=== PATIENT | male | born 1950 | race Caucasian/White ===

== ENCOUNTER 2017-02-18 15:33 | Observation (INO) | payer OTHER ==
--- NOTE | 2017-02-18 15:53 | CPEKG ---
Heart Rate: 75 RR Interval: 800 P-R Interval: 152 QRSD Interval: 98 QT Interval: 388 QTC Interval: 434 P [place]: 45 QRS [place]: 16 T Wave [place]: -22 EKG Severity - ABNORMAL ECG - EKG Impression: SINUS RHYTHM EKG Impression: INFERIOR INFARCT, AGE INDETERMINATE Electronically Signed By: Talib Bunch 18-Feb-2017 21:57:35
--- NOTE | 2017-02-18 16:12 | EDPHY ---
HPI/HX/ROS/PE/MDM Narrative: CHIEF COMPLAINT: Dizziness HISTORY OF PRESENT ILLNESS: The patient is a 66 year old male with history of diabetes, who presents with sudden onset of dizziness at 3pm. The patient walked 35 minutes to his dentist for a cleaning. While standing and speaking to dentist, he turned to get his hat and everything in his vision went black. The patient was able to catch himself on a counter ledge. He is able to recall the full event. He immediately after developed a headache. He described a pulsing to the back of his head that intermittently feels tingly. The patient's BGL at the dentist was 110. Patient has a history of diabetes. On arrival to the emergency department the patient reported that he began to feel lightheaded and dizzy. He states he does not feel stable when ambulating. When he closes his eyes he "gets a rocking sensation". While in the ED the patient notes some word finding difficulty. He states he is unable to recall a city in [place] and had a hard time finding with word "hygienist". He denies associated chest pain, shortness of breath, or palpitations. The patient has no history of hypertension. He denies vomiting, diarrhea, or urinary complaints. No numbness or tingling to face. REVIEW OF SYSTEMS: Aside from elements discussed in the HPI, a comprehensive 10-point review of systems was reviewed and is negative. PAST MEDICAL HISTORY: NH with 3 cardiac stents- Followed by Dr. Brand. Diabetes. SOCIAL HISTORY: . VITAL SIGNS: Reviewed by me GENERAL: Well-developed, well-nourished, resting comfortably in no respiratory distress. HEENT: Atraumatic. Eyes: No icterus, no injection. WAGNER, EOMI. Mouth: moist mucous membranes. No erythema or lesions. Neck: supple with no adenopathy. No carotid bruits. LUNGS: Clear to auscultation bilaterally, no wheezes, rhonchi or rales. CARDIAC: Regular rate and rhythm, no rubs, murmurs or gallops. ABDOMEN: Soft, nontender, nondistended, bowel sounds normal. BACK: No CVA tenderness. EXTREMITIES: No trauma. No edema. Range of motion is normal throughout. NEURO: Alert and oriented, cranial nerves II through XII are intact. Motor strength 5 over 5 in all major muscle groups. Sensation intact to light touch. Normal finger to nose. Speech is fluid. Able to name common objects. SKIN: Warm and dry, no rash. PSYCHIATRIC: Normal mentation, no agitation. Portions of this note were transcribed by a front office medical assistant. I personally performed a history, physical exam, medical decision making, and confirmed accuracy of information the transcribed note. ED Course: The patient is a 66-year-old male presenting with sudden onset of dizziness and loss of vision. The patient now feels dizzy when closing his eyes. He has a moderate headache and feels a tingling sensation to the occiput region. Stroke alert called. Patient was sent to CT for imaging of head and neck. Neurology was paged. Ct head noncontrast was. I viewed the images myself on the PACS system. I spoke to the radiologist, the patient has questionable hypodensity in left frontal lobe. See the full radiology report in the imaging section. X-ray of the chest was obtained. I viewed the images myself on the PACS system. See the full radiology report in the imaging section. 4:30 p.m.: I spoke to Dr. Ordaz with [facility] neurology. He gives the patient a stroke score of 0. When he tried to get patient to ambulate, the patient was unable to due to instability. Dr. Ordaz discussed the possibility of utilizing tPA with the patient and his . However, given the patient's NIH stroke score of 0, although he does have some gait difficulty, plan was made not to begin tPA. Patient will have a CT angiogram of the head and neck vessels obtained. I ordered 25mg Meclizine PO for symptomatic treatment. CT angiograms were normal. Patient's course was discussed with Dr Dale. MRI was ordered. The differential diagnosis for the patient's neurologic deficits included but was not limited to amaurosis fugax, peripheral causes, central causes including CVA, TIA, electrolyte abnormalities and dehydration, cardiogenic causes, atypical causes like migraine syndrome. MDM: Differential diagnoses the patient's presenting complaints was considered including but not limited to intracranial injury, TIA, ischemic cerebrovascular accident, hemorrhagic cerebrovascular accident, hypoglycemia, complex migraine , metastases, tumor, seizure, positional vertigo, or electrolyte abnormality. - Data Points Imaging Results: Imaging Impressions Head CT 02/18/17 16:15 Impression: 1. Mild atrophy. 2. No acute hemorrhage, hydrocephalus, or mass effect. 3. Cerebrovascular atherosclerosis. 4. No definite acute infarct. 5. Mild microvascular ischemic gliosis. 6. Consider MRI of the brain without and with contrast enhancement, if there is continued clinical concern. Findings and recommendations discussed with Emergency Department physician, Adina Evans MD at 1625 hour, 02/18/2017. Final report concurs with initial preliminary interpretation. Chest X-Ray 02/18/17 16:17 Impression: Stable negative portable chest. Laboratory Results: Laboratory Results 02/18/17 16:00 02/18/17 16:00 02/18/17 02/18/17 02/18/17 16:00 16:00 16:00 WBC 5.54 10^3/uL 10^3/uL (3.80-9.50) RBC 4.68 10^6/uL 10^6/uL (4.40-6.38) Hgb 14.5 g/dL g/dL (13.7-17.5) POC Hgb Hct 44.1 % % (40.0-51.0) POC Hct MCV 94.2 fL fL (81.5-99.8) MCH 31.0 pg pg (27.9-34.1) MCHC 32.9 g/dL g/dL (32.4-36.7) RDW 12.9 % % (11.5-15.2) Plt Count 233 10^3/uL 10^3/uL (150-400) MPV 11.2 fL fL (8.7-11.7) Neut % (Auto) 59.2 % % (39.3-74.2) Lymph % (Auto) 27.8 % % (15.0-45.0) Rogers % (Auto) 9.0 % % (4.5-13.0) Eos % (Auto) 3.1 % % (0.6-7.6) Baso % (Auto) 0.7 % % (0.3-1.7) Nucleat RBC Rel Count 0.0 % % (0.0-0.2) Absolute Neuts (auto) 3.28 10^3/uL 10^3/uL (1.70-6.50) Absolute Lymphs (auto) 1.54 10^3/uL 10^3/uL (1.00-3.00) Absolute Monos (auto) 0.50 10^3/uL 10^3/uL (0.30-0.80) Absolute Eos (auto) 0.17 10^3/uL 10^3/uL (0.03-0.40) Absolute Basos (auto) 0.04 10^3/uL 10^3/uL (0.02-0.10) Absolute Nucleated RBC 0.00 10^3/uL 10^3/uL (0-0.01) Immature Gran % 0.2 % % (0.0-1.1) Immature Gran # 0.01 10^3/uL 10^3/uL (0.00-0.10) PT 13.9 SEC SEC (12.0-15.0) INR 1.08 (0.83-1.16) POC Sodium Sodium 140 mEq/L mEq/L (134-144) POC Potassium Potassium 4.6 mEq/L mEq/L (3.5-5.2) POC Chloride Chloride 104 mEq/L mEq/L (97-110) Carbon Dioxide 23 mEq/l mEq/l (22-31) Anion Gap 13 mEq/L mEq/L (8-16) POC BUN BUN 19 mg/dL mg/dL (7-23) Creatinine 0.8 mg/dL mg/dL (0.7-1.3) POC Creatinine Estimated GFR > 60 Glucose 115 mg/dL H mg/dL (70-100) POC Glucose Calcium 9.7 mg/dL mg/dL (8.5-10.4) Troponin I < 0.012 ng/mL ng/mL (0-0.034) 02/18/17 15:56 WBC RBC Hgb POC Hgb 15.6 gm/dL gm/dL (14.5-17.3) Hct POC Hct 46 % % (42.8-50.6) MCV MCH MCHC RDW Plt Count MPV Neut % (Auto) Lymph % (Auto) Rogers % (Auto) Eos % (Auto) Baso % (Auto) Nucleat RBC Rel Count Absolute Neuts (auto) Absolute Lymphs (auto) Absolute Monos (auto) Absolute Eos (auto) Absolute Basos (auto) Absolute Nucleated RBC Immature Gran % Immature Gran # PT INR POC Sodium 141 mEq/L mEq/L (134-144) Sodium POC Potassium 4.2 mEq/L mEq/L (3.3-5.0) Potassium POC Chloride 103 mEq/L mEq/L (96-108) Chloride Carbon Dioxide Anion Gap POC BUN 20 mg/dL mg/dL (7-23) BUN Creatinine POC Creatinine 0.9 mg/dL mg/dL (0.8-1.5) Estimated GFR Glucose POC Glucose 118 mg/dL H mg/dL (70-100) Calcium Troponin I Point of Care Test Results: 02/18/17 15:56 POC Sodium 141 POC Potassium 4.2 POC Chloride 103 POC BUN 20 POC Creatinine 0.9 POC Glucose 118 H General Time Seen by Provider: 02/18/17 15:50 Initial Vital Signs: Initial Vital Signs Temperature (C) 36.6 C 02/18/17 15:34 Heart Rate 85 02/18/17 15:34 Respiratory Rate 16 02/18/17 15:34 Blood Pressure 154/83 H 02/18/17 15:34 O2 Sat (%) 95 02/18/17 15:34 O2 Delivery Mode Room Air Allergies/Adverse Reactions: No Known Allergies Allergy (Verified 02/18/17 15:34) Home Medications: Medication Instructions Recorded Aspirin [Aspirin 81mg (OTC)] 81 mg PO DAILY@18 12/29/12 Atorvastatin Calcium [Lipitor 40 40 mg PO DAILY 12/29/12 mg (RX)] Pioglitazone HCl [Actos 15mg (RX)] 30 mg PO DAILY 12/29/12 metFORMIN HCL [Glucophage 1000 mg] 1,000 mg PO BIDMEAL 12/29/12 Calcium Carbonate [Oyster Shell 500 mg PO DAILY 02/18/17 Calcium 500 mg (*)] Herbals/Supplements -Info Only 1 ea PO DAILY 02/18/17 Tamsulosin HCl [Flomax 0.4 MG (*)] 0.4 mg PO HS 02/18/17 glipiZIDE [Glipizide Xl] 5 mg PO BID 02/18/17 Departure - Departure Disposition: [facility] Acute Clinical Impression: Dizziness, Vertigo Transient visual loss Qualifiers: Laterality: bilateral Qualified Code(s): H53.123 - Transient visual loss, bilateral Condition: Fair Report Scribed for: Adina Evans Report Scribed by: Isis Flanagan Date of Report: 02/18/17 Time of Report: 16:12
[2017-02-18 16:26] LABS: % IMMATURE GRANULYOCYTES 0.2 % (0.0-1.1); ABSOLUTE IMMATURE GRANULOCYTES 0.01 10^3/uL (0.00-0.10); ADD DIFF? NO; ADD MORPH? NO; ADD SCAN? NO; ATYPICAL LYMPHOCYTE FLAG 10 (0-99); FRAGMENT RBC FLAG 0 (0-99); HEMATOCRIT 44.1 % (40.0-51.0); HEMOGLOBIN 14.5 g/dL (13.7-17.5); LEFT SHIFT FLG 0 (0-99); LIPEMIA HEMOLYSIS FLAG 80 (0-99); MEAN CELL HEMOGLOBIN CONCENTR. 32.9 g/dL (32.4-36.7); MEAN CELL VOLUME 94.2 fL (81.5-99.8); MEAN PLATELET VOLUME 11.2 fL (8.7-11.7); PLATELET CLUMPS FLAG 0 (0-99); PLATELET COUNT 233 10^3/uL (150-400); RED BLOOD CELL COUNT 4.68 10^6/uL (4.40-6.38); RED CELL DISTRIBUTION WIDTH 12.9 % (11.5-15.2)
[2017-02-18 16:32] LABS: ANION GAP 13 mEq/L (8-16); CALCIUM 9.7 mg/dL (8.5-10.4); CARBON DIOXIDE 23 mEq/l (22-31); CHLORIDE 104 mEq/L (97-110); CREATININE 0.8 mg/dL (0.7-1.3); GLOMERULAR FILTRATION RATE > 60; GLUCOSE 115 mg/dL (70-100); POTASSIUM 4.6 mEq/L (3.5-5.2); SODIUM 140 mEq/L (134-144)
[2017-02-18 16:43] LABS: TROPONIN I < 0.012 ng/mL (0-0.034)
[2017-02-18 16:47] LABS: INR 1.08 (0.83-1.16); PROTIME(PATIENT) 13.9 SEC (12.0-15.0)
[2017-02-18] MEDS ORDERED: IOPAMIDOL (ISOVUE 370) 100 ML BTL IV ONE (16:59)
[2017-02-18] MEDS ORDERED: MECLIZINE HCL 25 MG TAB PO ONE (17:05)
[2017-02-18] MEDS ORDERED: ONDANSETRON DISINTEGRATING 4 MG TAB PO PRN (17:59)
[2017-02-18] MEDS ORDERED: NS 1,000 ML IV ONE (17:59)
[2017-02-18] MEDS ORDERED: ONDANSETRON 4 MG/2 ML VIAL IVP PRN (17:59)
[2017-02-18] MEDS ORDERED: ASPIRIN EC 325 MG TAB PO SCH (18:30)
--- NOTE | 2017-02-18 19:42 | GHP ---
[f rep st] HISTORY AND PHYSICAL DATE OF ADMISSION: 02/18/2017 CHIEF COMPLAINT: Lightheadedness and gait instability. HISTORY OF PRESENT ILLNESS: A 66-year-old male with a history of coronary artery disease status pos t multiple stenting and long-term diabetes, who presents from his dentist's office today after mindy grant cleaning. Patient rob and was standing and had a very sudden loss of vision causing him to brian ck out without loss of consciousness and stabilize himself along the wall. Patient then developed a very severe sensation of gait instability or difficulty placing himself in space with a tingling se nsation across his scalp and a low-grade headache in his posterior head. These symptoms persisted u ntil he presented to the emergency department. Denied at that time any weakness or tingling of his extremities. After some time in the emergency d epartment, patient developed severe dizziness particularly when lying his head back. This persisted through both of his CT scans until treated with meclizine. When examined in the ED initially, he d id have some vyozgv-ec-msyk instability and a few moments of word-finding difficulty. On my interview, patient was thinking very clearly, denied any weakness, any tingling, had marked im provement in his vertigo symptoms, denied any chest pain, palpitations, shortness of breath, nausea, vomiting, abdominal discomfort. Patient can walk 30-40 minutes without complication, chest pain or limitations secondary to conditioning, is quite stable on his feet and quite active for his medical comorbidities. PAST MEDICAL HISTORY: 1. Coronary artery disease status post 3 stents. 2. Diabetes mellitus. 3. Hyperlipidemia, diet and activity controlled. 4. Chronic back pain. SOCIAL HISTORY: Lives with his . Does not smoke, drink alcohol or use illicit drugs. FAMILY HISTORY: Positive for vertigo as well as ovarian cancer in his mother. No known strokes. ADVANCED DIRECTIVES: The patient wishes to be full cor, full tube. His would be his medical d ecision maker. REVIEW OF SYSTEMS: A 10-point review of systems is negative with the exception of that reported in the HPI. PHYSICAL EXAMINATION: VITAL SIGNS: Blood pressure is 164/74, heart rate 77, respiratory rate 18, 9 4% on room air of 36.6. GENERAL: This is a very healthy-appearing middle-aged male in no acute distr ess. HEENT: Notable for moist mucous membranes. Eye exam is negative for any icterus. CARDIAC: Patient is regular rate and rhythm. Quiet systolic murmur is appreciated. PULMONARY: Clear to aus cultation bilaterally. GASTROINTESTINAL: Positive bowel sounds. ABDOMEN: Soft, nontender in all 4 quadrants. MUSCULOSKELETAL: Negative for any lower extremity edema. SKIN: Negative for any rash es. NEUROLOGIC: Cranial nerves 2-12 are grossly intact. Strength is grossly intact. Sensation is grossly intact. Patient has slight faltering on btgujv-rr-cqps and has mild pronator drift, was sl ow to stabilize himself when transitioning from the ER bed to his inpatient bed. DATA: White count 5.5, hematocrit 44, creatinine 0.8. EKG, which I personally reviewed and interpreted, shows sinus rhythm, leftward axis deviation, with no acute ST-T changes. Noncontrast CT of the head, which I personally reviewed and interpreted, shows no acute strokes. Radiology comments on mild microvascular ischemic gliosis. CTA of the head and neck show normal arterial circulation. Chest x-ray, which I personally reviewed and interpreted, shows no acute infiltrates or edema. ASSESSMENT AND PLAN: This is a 66-year-old male presenting with acute ataxia and lightheadedness. 1. Presumed transient ischemic attack. Patient's initial symptoms sound concerning for a possible posterior transient ischemic attack. Initial imaging of the head has been negative. Will admit the patient, order MRI, telemetry monitoring overnight and transthoracic echocardiogram. Patient will receive an aspirin and be seen by Neurology in the morning. 2. Coronary artery disease. Patient does not have chest pain complaints. His EKG is unconcerning. Will continue his home medications when reconciled. 3. Hyperlipidemia. We will check fasting lipids in the morning to help inform. 4. Risk prevention strategies by Neurology. 5. Diabetes. Will continue his home regimen with the exception of metformin which will hold while inpatient. DIET: Cardiac. PROPHYLAXIS: Lovenox. DISPOSITION: I expect less than 2 midnights if the patient's neurologic imaging and exam remains st able. I have discussed the case with the emergency room physician. Patient will be triaged to the medical -surgical floor for monitoring and care. /[id number]/MODL
[2017-02-18 20:20] LABS: HEMOGLOBIN A1C 7.4 % (4.0-6.0)
[2017-02-18] MEDS: glipiZIDE XL 5 MG TAB PO SCH (20:28)
[2017-02-18] MEDS ORDERED: TAMSULOSIN HCL 0.4 MG CAP PO SCH (21:00)
[2017-02-18] MEDS: ACETAMINOPHEN 325 MG TAB PO PRN (23:09)
[2017-02-19 05:30] LABS: ANION GAP 8 mEq/L (8-16); CALCIUM 9.2 mg/dL (8.5-10.4); CARBON DIOXIDE 27 mEq/l (22-31); CHLORIDE 106 mEq/L (97-110); CHOLESTEROL 97 mg/dL (140-220); CREATININE 0.9 mg/dL (0.7-1.3); GLOMERULAR FILTRATION RATE > 60; GLUCOSE 113 mg/dL (70-100); HIGH DENSITY LIPOPROTEIN 44 mg/dL (40-65); LDL/HDL RATIO 0.64 RATIO (1.00-3.64); LOW DENSITY LIPOPROTEIN 28 mg/dL (80-100); NON-HIGH DENSITY LIPOPROTEIN 53 mg/dL (90-129); POTASSIUM 4.9 mEq/L (3.5-5.2); SODIUM 141 mEq/L (134-144); TRIGLYCERIDE 129 mg/dL (40-150); VERY LOW DENSITY LIPOPROTEINS 25 mg/dL (8-25)
[2017-02-19 07:49] VITALS: RESP 14; TEMP 97.9
[2017-02-19] MEDS: glipiZIDE XL 5 MG TAB PO SCH (08:33)
[2017-02-19] MEDS: ACETAMINOPHEN 325 MG TAB PO PRN (08:33)
[2017-02-19] MEDS ORDERED: ENOXAPARIN 40 MG/0.4 ML SYR SC SCH (09:00)
[2017-02-19] MEDS ORDERED: CALCIUM CARBONATE 500 MG TAB PO SCH (09:00)
[2017-02-19] MEDS ORDERED: Herbals/Supplements -Info Only PO SCH (09:00)
[2017-02-19] MEDS ORDERED: ATORVASTATIN CALCIUM 40 MG TAB PO SCH (09:00)
[2017-02-19] MEDS ORDERED: PIOGLITAZONE HCL 15 MG TAB PO SCH (09:00)
[2017-02-19 11:53] VITALS: O2SAT 95
--- NOTE | 2017-02-19 12:48 | ECHO ---
[id number] + + [address] : : [place] [address] : : [phone] + Adult Echocardiographic Report + ------+ :Name: AGNELA CHISHOLM BStudy Date: 02/19/2017 08:47 AM : : Hospital Admission Number: [id number] Locatio n: 341: :: 1950 Gender: Male Height: 75 in : :Age: 66 yrs Race: WH Weight: 228 lb : :Reason For Study: Eval LV Fx : : BSA: 2.3 meters 2 : :History: Near Syncope, Question TIA, History of Stents : + ------+ MMode/2D Measurements \T\ Calculations IVSd: 1.0 cm LVIDd: 5.6 cm FS: 27.8 % Ao root diam: 3.7 cm LVPWd: 1.2 cm LVIDs: 4.0 cm EDV(Teich): 151.7 ml ACS: 2.4 cm ESV(Teich): 70.9 ml EF(Teich): 53.3 % Normal Measurement Values: + + :LVIDd (3.5-5.7cm) IVSd (0.6-1.1cm) LVPWd (0.6-1.1cm) Aortic Root (2.0-3.7cm)Left Atrium (1.5-4.0cm): :LV Vol(d) (76-115ml) LV Vol(s) (29-48ml) Ejec Fraction (50-65%)PV Ras (0.6- 1.2m/s) TV Ras (0.4-1.0m/s) : :MV E Ras (0.8-1.0m/s)MV A Ras (0.3-1.0m/s)LVOT Ras (0.7-1.2m/s) Asc Ao Ras ( 0.9-1.8m/s) : + + Doppler Measurements \T\ Calculations MV E max ras: Ao V2 max: LV V1 max: PA V2 max: 58.7 cm/sec 97.7 cm/sec 66.6 cm/sec 170.4 cm/sec MV A max ras: Ao max PG: LV V1 max PG: PA max P.5 cm/sec 3.8 mmHg 1.8 mmHg 14.4 mmHg MV E/A: 0.79 Left Ventricle The left ventricle is normal in size. There is normal left ventricular wall thickness. Ejection Fraction = 45 to 50%. There is Doppler evidence for diastolic dysfunction. The inferior and inferoseptal grier are hypokinetic. Right Ventricle The right ventricle is normal in size and function. Atria The left atrial size is normal. Right atrial size is normal. Mitral Valve The mitral valve is normal in structure and function. There is no evidence of mitral valve prolapse. There is no mitral valve stenosis. There is no mitral regurgitation noted. Tricuspid Valve There is trace tricuspid regurgitation. Aortic Valve The aortic valve is trileaflet. There is no aortic stenosis. There is no aortic insufficiency. Pulmonic Valve The pulmonic valve is not well visualized. There is no pulmonic valvular regurgitation. Great Vessels The aortic root is normal size. Pericardium/Pleural There is no pericardial effusion. Conclusion A complete two-dimensional transthoracic echocardiogram was performed (2D, M-mode, Doppler and color flow Doppler). 1. The left ventricle is normal in size. The Ejection Fraction = 45 to 50%. The inferior and inferoseptal grier are hypokinetic. 2. The mitral valve is normal in structure and function. 3. The aortic valve is trileaflet. There is no aortic stenosis. There is no aortic insufficiency. 4. No old studies for comparison. Final Reading Physician: Vitor Crystal MD electronically signed on 02/19/2017 12:46 PM Ordering Physician: Mary Dale Performed By: Jorje Prabhakar, EDMONDCS
[2017-02-19 15:46] VITALS: BP 129/81; PULSE 70
[2017-02-19] MEDS ORDERED: ASPIRIN 81 MG CHEWABLE TAB PO SCH (18:00)
--- NOTE | 2017-02-19 20:35 | GDS ---
[f rep st] DISCHARGE SUMMARY DISCHARGE DIAGNOSES: 1. Lightheadedness and gait instability, most likely due to peripheral vertigo versus less likely t ransient ischemic attack. 2. History of coronary artery disease. 3. History of dyslipidemia. 4. History of diabetes mellitus. CONSULTANTS: Dr. Abdulaziz Mccauley. OBSERVATION COURSE AND STAY BY PROBLEM: Disequilibrium and gait instability: The patient was place d on observation out of concerns for TIA. A brain MRI done on 02/18/2017 was negative for stroke. The patient tells me that, while in the MRI scanner, he had an episode of vertigo, as well as headac he, which makes me think that his symptoms could be due to peripheral vertigo or possibly an atypica l migraine. On day of discharge, the patient states he feels well with resolution of his symptoms. He is no keagan josette having vertigo. I discussed the case with Dr. Mccauley who did recommend changing his aspirin to Pl avix in the off chance that this does represent a TIA. PHYSICAL EXAMINATION: VITAL SIGNS: On day of discharge, blood pressure 129/81, pulse is 70, respir atory rate 14, O2 saturation 95% on room air. GENERAL: No acute distress. NEURO: Cranial nerves 2-12 grossly intact. Face is symmetric. There is no pronator drift. There is no nystagmus. Denies any hearing loss or tinnitus. DISCHARGE MEDICATIONS: Please refer to discharge medication reconciliation in [facility]. DISCHARGE INSTRUCTIONS: He will be discharged from the hospital where he should follow up with his primary care provider in 1-2 weeks for routine hospital followup, as well as with Dr. Mccauley as instru cted. /[id number]/MODL
--- NOTE | 2017-02-19 23:05 | GCON ---
[f rep st] CONSULTATION INPATIENT CONSULTATION. DATE OF CONSULTATION: 02/19/2017 CHIEF COMPLAINT: Passing out spell, vertigo. HISTORY OF PRESENT ILLNESS: Dr. Mary Dale of the hospitalist service consulted Neurology for ev aluation of patient's neurologic symptoms. The results of evaluation are placed in the EMR for her review. This is a 66-year-old male with a past medical history of coronary artery disease with stents, diabe kimber, hyperlipidemia, and chronic back pain. He reports he was at a dental procedure on February 18. When he arose from the chair, he has sense of false sensation of movement resulting in passing o ut briefly. Since that time, he has felt slightly off balance. He also has felt intermittent tingl ing on his head. Symptoms are dramatically better today than they were yesterday. Hospitalization has included brain MRI, which was unremarkable. CT angio of the head and neck, which was unremarkab le. Echocardiogram showed no cardiac thrombus. Telemetry showing no atrial fibrillation. PAST MEDICAL HISTORY: Coronary artery disease, diabetes, hyperlipidemia, chronic back pain. SOCIAL HISTORY: Lives with . FAMILY HISTORY: Vertigo and cancer. REVIEW OF SYSTEMS: A 10-point review of systems is negative except for what is placed in the HPI. PHYSICAL EXAMINATION: VITAL SIGNS: Blood pressure 124/72, heart rate 66, respirations 14, saturati ng 95% on room air, temperature 36.6 degrees Celsius. GENERAL: In no acute distress. EYES: Fundu scopic exam could not visualize optic disc. LUNGS: Clear to auscultation bilaterally. No rhonchi or rale. HEART: Regular rate and rhythm. No murmurs. No carotid bruits auscultated. NEUROLOGIC: Mental status: Alert oriented to person, place, and date. Memory, attention, language, and fund of knowledge all appear intact. Cranial nerves: Pupils equal, round, reactive to light. Visual fi elds full to confrontation. Extraocular muscles intact. Bilateral face intact sensation and motor movement. Hearing intact to conversation. Uvula raises symmetrically. Tongue protrudes midline. Traps 5/5 strength. Motor exam: Normal tone and strength all 4 extremities. Sensory exam: All 4 extremities intact to light touch. No neglect. Reflexes: Bilateral biceps and brachial radialis a re 2/4. Coordination: Bilateral kmgdgk-oe-gydh, ostk-so-omqh, and rapid alternating movements are normal. GAIT: He stands and walks without any apparent vertigo. LABS: February 18, 2017: His CBC is unremarkable. INR unremarkable. Chemistry unremarkable. H1Ac 7. 4. February 19, 2017: LDL 28. RADIOLOGY: February 18, 2017: A brain MRI without contrast shows no acute stroke or any other acute fi ndings. There is mild chronic microvascular disease, I personally visualized the study. February 18 017: A CT angiogram of the head and neck shows no significant abnormalities. February 18, 2017: Trans thoracic echocardiogram shows no cardiac thrombus. February 18, 2017: Telemetry at this point has show n no atrial fibrillation. ASSESSMENT: 1. Peripheral vertigo syndrome: I suspect the patient likely had peripheral vertigo syndrome such as benign paroxysmal positional vertigo when he arose from the dental chair. This could be resultan t vasovagal syncope from intense vertigo. The fact that he has false sensation of movement lingerin g today makes me suspect that it was the likely cause. Symptoms have persisted but brain MRI is neg ative for ischemia, so I think a stroke or TIA is very unlikely. A typical vestibular migraine is a lso possible but that too seems unlikely. Treatment for BPPV is symptomatic care and possible vesti bular rehab, but since the patient's symptoms are dramatically better, he will go home and call me i n a few days if symptoms do not continue to improve. Given the small chance that this was an atypic al TIA, patient has requested we change his aspirin 81 mg to Plavix 75 mg daily. I will perform thi s in the outpatient setting and have the patient follow up with me in 4-6 weeks to verify this. 2. Diabetes. 3. Hyperlipidemia. 4. Heart disease. RECOMMENDATIONS: 1. In the outpatient setting, change aspirin 81 mg daily to Plavix 75 mg daily. 2. Work with outpatient primary care provider to ensure LDL less than 70, currently 28; HCT less th an 7, currently 7.4; blood pressure less than 140/90, given possibility this was a TIA. 3. Happy to follow in Neurology Service in 6 weeks, to call in 3 days if vertigo is not approved as we can refer to outpatient vestibular proposal specialist. No further neurologic workup needed. Patient can discharge home. /[id number]/MODL
== END 2017-02-19 17:20 | disposition home or self-care (01) ==
LOC: F3N 18:43
PROVIDERS: ADMIT Hospitalist; ATTEND Family Medicine
DX: R42 Dizziness and giddiness (principal); R26.81 Unsteadiness on feet; E11.9 Type 2 diabetes mellitus without complications; I25.10 Atherosclerotic heart disease of native coronary artery without angina pectoris; E78.5 Hyperlipidemia, unspecified; M54.9 Dorsalgia, unspecified; Z95.5 Presence of coronary angioplasty implant and graft
CPT/HCPCS: 70450; 70496; 70498; 70551; 71010; 92523; 93005; 93306; 97161; 99285; G0378; G8978; G8979; G8980; G8999; G9158; G9186; J1650; Q9967; 82947-QW

== ENCOUNTER → 2017-09-06 | Outpatient (CLI) | payer OTHER | LOC: BMCIMAGING 15:53 | PROVIDERS: ATTEND Family Medicine | DX: M24.232 Disorder of ligament, left wrist (principal) ==

== ENCOUNTER 2018-07-09 07:54 | Inpatient (IN) | payer OTHER ==
--- NOTE | 2018-07-09 08:13 | EDPHY ---
H & P Stated Complaint: prostate surg last week/catheter removed yesterday with fever/ chills Time Seen by Provider: 07/09/18 08:05 HPI/ROS: CHIEF COMPLAINT: Fever, chills following prostate surgery HISTORY OF PRESENT ILLNESS: The patient presents the ED with fever and chills following surgical treatment for BPH. The patient did have some difficulty initiating urination last night however has been able to urinate this morning. The patient had a Anderson catheter removed yesterday. The patient had a Anderson catheter placed for 2 days. It appears he did receive 1 IV dose of antibiotics during his procedure. He has not been on oral antibiotics since that time. The patient does have a history of coronary artery disease but has been off his Plavix secondary to this procedure. There is a plan to keep the patient off of Plavix moving forward. The patient reports associated shaking chills, nausea and non bilious vomiting. The patient complains of fairly significant systemic malaise. REVIEW OF SYSTEMS: A comprehensive 10 point review of systems is otherwise negative aside from elements mentioned in the history of present illness. Source: Patient Exam Limitations: No limitations - Personal History Current Tetanus Diphtheria and Acellular Pertussis (TDAP): Yes - Medical/Surgical History Hx Diabetes: Yes Hx Cardiac Disease: Yes Hx Renal Disease: No Hx Cirrhosis: No Hx Alcoholism: No Hx HIV/AIDS: No Hx Splenectomy or Spleen Trauma: No Other PMH: divericulitis. colon surg. NC w/3stents - Family History Significant Family History: No pertinent family hx - Social History Smoking Status: Former smoker - Physical Exam Exam: General Appearance: Alert, mild discomfort Eyes: Pupils equal and round no pallor or injection ENT, Mouth: Mucous membranes moist Respiratory: There are no retractions, lungs are clear to auscultation Cardiovascular: Tachycardic Gastrointestinal: Abdomen is soft and nontender, no masses, bowel sounds normal Neurological: 5/5 strength noted all 4 extremities Skin: Warm and dry, no rashes Musculoskeletal: Neck is supple nontender Extremities: Tenderness to palpation in the left wrist which the patient reports is a chronic condition Constitutional: Initial Vital Signs Temperature (C) 38 C 07/09/18 07:57 Heart Rate 152 H 07/09/18 07:57 Respiratory Rate 20 07/09/18 07:57 Blood Pressure 149/84 H 07/09/18 07:57 O2 Sat (%) 93 07/09/18 07:57 O2 Delivery Mode Nasal Cannula O2 (L/minute) 3 Allergies/Adverse Reactions: No Known Allergies Allergy (Verified 07/09/18 10:16) Home Medications: Medication Instructions Recorded Pioglitazone HCl [Actos 15mg (*)] 30 mg PO DAILY 12/29/12 Calcium Carbonate [Oyster Shell 500 mg PO DAILY 02/18/17 Calcium 500 mg (*)] Aspirin EC [Aspirin EC 81 mg (*)] 81 mg PO DAILY 07/09/18 Carvedilol [Coreg (*)] 3.125 mg PO BIDMEAL 07/09/18 Cholecalciferol Vit D3 [Vitamin D3 1,000 units PO DAILY 07/09/18 (*)] Insulin Detemir [Levemir] 10 unit SQ DAILY 07/09/18 Insulin Detemir [Levemir] 18 unit SQ HS 07/09/18 Multivitamins [Multivitamin (*)] 1 each PO DAILY 07/09/18 Rosuvastatin Calcium [Crestor 20mg 20 mg PO DAILY 07/09/18 (*)] Tadalafil [Cialis] 5 mg PO HS 07/09/18 glipiZIDE [Glipizide] 10 mg PO BIDMEAL 07/09/18 metFORMIN HCL [Metformin HCl] 1,000 mg PO BIDMEAL 07/09/18 Medical Decision Making ED Course/Re-evaluation: The patient presents to the ED with rigors, tachycardia and fever in the setting of a recent prostate surgery in Anderson catheter placement. The patient was hypertensive upon arrival. He is tachycardic. He does have SIRS criteria with tachycardia and fever. I suspect infection. Blood cultures x2 have been obtained. Urinalysis have been sent. The patient was able to void in the emergency department. Bladder scan did demonstrate a postvoid residual of 300 mL. The patient does meet criteria for sepsis. A screening lactic acid has been sent in addition to routine laboratory studies. The patient is given 1 g of IV ceftriaxone. The patient's lactic acid level is elevated at 2.9. He received a 30 ml/kg bolus of normal saline. The patient remains hypertensive. Initial EKG demonstrates sinus tachycardia with a rate of [address] T wave changes. Troponin has been ordered. The patient is having no complaints of chest pain or shortness of breath. Recheck at 9:15 a.m. Blood pressure 180/95, heart rate down to 115. I did consult with Dr. Madera from Infectious Disease regarding his neutropenia. She recommends ceftriaxone only at this point time. She will see the patient in formal consultation later today. Consultation is made with the hospitalist service at 9:20 a.m. The patient will be admitted by Dr. Demetrius London. 9:40 a.m.: Istat troponin is 0.02. The patient will be admitted to a Med/Surg Bed. BP now 130/87 and HR 115. Repeat lactic acid for severe sepsis core measure pending following IVF. 10:20 a.m.: Repeat venous lactic acid is improved in now 2.0. Blood pressure 147/88, heart rate 116. Awaiting floor bed. Differential Diagnosis: Differential diagnosis considered includes sepsis, severe sepsis, septic shock, pyelonephritis Critical Care Time: Critical care time exclusive of procedures and exclusive of the PA's time was 35 minutes, performed by myself, Cheo Cortez MD. The patient presents to the emergency department with severe sepsis, neutropenia and tachycardia. He required aggressive fluid rehydration. The patient did receive broad-spectrum antibiotics. Consultation was made with both Internal Medicine and Infectious Disease. - Data Points Laboratory Results: Laboratory Results 07/09/18 08:15 07/09/18 08:15 07/09/18 07/09/18 07/09/18 09:19 08:15 08:15 WBC RBC Hgb Hct MCV MCH MCHC RDW Plt Count MPV Neut % (Auto) Lymph % (Auto) [place] % (Auto) Eos % (Auto) Baso % (Auto) Nucleat RBC Rel Count Absolute Neuts (auto) Absolute Lymphs (auto) Absolute Monos (auto) Absolute Eos (auto) Absolute Basos (auto) Absolute Nucleated RBC Immature Gran % Immature Gran # Smear Review By [facility] Lactic Acid Sodium 141 mEq/L mEq/L (135-145) Potassium 4.3 mEq/L mEq/L (3.3-5.0) Chloride 105 mEq/L mEq/L (97-110) Carbon Dioxide 22 mEq/l mEq/l (22-31) Anion Gap 14 mEq/L mEq/L (8-16) BUN 21 mg/dL mg/dL (7-23) Creatinine 0.9 mg/dL mg/dL (0.7-1.3) Estimated GFR > 60 Glucose 145 mg/dL H mg/dL (70-100) Calcium 9.7 mg/dL mg/dL (8.5-10.4) POC Troponin I 0.02 ng/mL ng/mL (0.00-0.08) Troponin I < 0.012 ng/mL ng/mL (0.000-0.034) Urine Color Urine Appearance Urine pH Ur Specific [place] Urine Protein Urine Ketones Urine Blood Urine Nitrate Urine Bilirubin Urine Urobilinogen Ur Leukocyte Esterase Urine RBC Urine WBC Ur Epithelial Cells Urine Bacteria Urine Mucus Urine Glucose 07/09/18 07/09/18 07/09/18 08:15 08:15 08:05 WBC 0.78 10^3/uL L* 10^3/uL (3.80-9.50) RBC 4.54 10^6/uL 10^6/uL (4.40-6.38) Hgb 14.3 g/dL g/dL (13.7-17.5) Hct 42.2 % % (40.0-51.0) MCV 93.0 fL fL (81.5-99.8) MCH 31.5 pg pg (27.9-34.1) MCHC 33.9 g/dL g/dL (32.4-36.7) RDW 13.2 % % (11.5-15.2) Plt Count 167 10^3/uL 10^3/uL (150-400) MPV 10.5 fL fL (8.7-11.7) Neut % (Auto) 71.7 % % (39.3-74.2) Lymph % (Auto) 24.4 % % (15.0-45.0) [place] % (Auto) 1.3 % L % (4.5-13.0) Eos % (Auto) 1.3 % % (0.6-7.6) Baso % (Auto) 1.3 % % (0.3-1.7) Nucleat RBC Rel Count 0.0 % % (0.0-0.2) Absolute Neuts (auto) 0.56 10^3/uL L 10^3/uL (1.70-6.50) Absolute Lymphs (auto) 0.19 10^3/uL L 10^3/uL (1.00-3.00) Absolute Monos (auto) 0.01 10^3/uL L 10^3/uL (0.30-0.80) Absolute Eos (auto) 0.01 10^3/uL L 10^3/uL (0.03-0.40) Absolute Basos (auto) 0.01 10^3/uL L 10^3/uL (0.02-0.10) Absolute Nucleated RBC 0.00 10^3/uL 10^3/uL (0-0.01) Immature Gran % 0.0 % % (0.0-1.1) Immature Gran # 0.00 10^3/uL 10^3/uL (0.00-0.10) Smear Review By Pending [facility] Lactic Acid 2.9 mmol/L H mmol/L (0.7-2.1) Sodium Potassium Chloride Carbon Dioxide Anion Gap BUN Creatinine Estimated GFR Glucose Calcium POC Troponin I Troponin I Urine Color KRISTA Urine Appearance CLEAR Urine pH 5.0 (5.0-7.5) Ur Specific [place] 1.013 (1.002-1.030) Urine Protein 1+ H (NEGATIVE) Urine Ketones NEGATIVE (NEGATIVE) Urine Blood 2+ H (NEGATIVE) Urine Nitrate POSITIVE H (NEGATIVE) Urine Bilirubin NEGATIVE (NEGATIVE) Urine Urobilinogen 4.0 EU H EU (0.2-1.0) Ur Leukocyte Esterase NEGATIVE (NEGATIVE) Urine RBC 50-182 /hpf H /hpf (0-3) Urine WBC 10-15 /hpf H /hpf (0-3) Ur Epithelial Cells NONE SEEN /lpf /lpf (NONE-1+) Urine Bacteria TRACE /hpf H /hpf (NONE SEEN) Urine Mucus TRACE /lpf /lpf (NONE-1+) Urine Glucose NEGATIVE (NEGATIVE) Medications Given: Discontinued Medications Ceftriaxone Sodium/Dextrose (Rocephin 1 Gm (Premix)) 50 mls @ 100 mls/hr IV EDNOW ONE PRN Reason: Protocol Stop: 07/09/18 08:49 Last Admin: 07/09/18 08:54 Dose: 50 mls Sodium Chloride (Ns) 3,200 mls @ 6,400 mls/hr 30 ml/kg infuse over 30 min ( 3200 ml) IV EDNOW ONE PRN Reason: Protocol Stop: 07/09/18 09:16 Last Admin: 07/09/18 08:53 Dose: 3,200 mls Ondansetron HCl (Zofran) 4 mg IVP EDNOW ONE Stop: 07/09/18 08:48 Last Admin: 07/09/18 08:48 Dose: 4 mg Point of Care Test Results: Chemistry 07/09/18 09:19 POC Troponin I 0.02 ng/mL ng/mL (0.00-0.08) Departure - Departure Disposition: [facility] Acute Clinical Impression: Severe sepsis, Neutropenia, Pyelonephritis, Tachycardia Condition: Fair
[2018-07-09] MEDS ORDERED: ONDANSETRON 4 MG/2 ML VIAL ONE (08:39)
[2018-07-09 08:45] LABS: PLATELET COUNT 167 10^3/uL (150-400)
[2018-07-09] MEDS ORDERED: NS IV ONE (08:47)
[2018-07-09] MEDS ORDERED: ONDANSETRON 4 MG/2 ML VIAL IVP ONE (08:47)
--- NOTE | 2018-07-09 09:24 | CPEKG ---
Test Reason : OPEN Blood Pressure : / mmHG Vent. Rate : 139 BPM Atrial Rate : 139 BPM P-R Int : 128 ms QRS Dur : 098 ms QT Int : 316 ms P-R-T Axes : 022 028 -85 degrees QTc Int : 481 ms Sinus tachycardia Inferoposterior infarct, recent Consider anterolateral infarct Confirmed by Cheo Cortez ([id number]) on 07/09/2018 9:23:28 AM Referred By: Confirmed By:Cheo Cortez
--- NOTE | 2018-07-09 10:40 | ASMTCMCOM ---
CM Note CM Note Notes: Pt presented to the Emergency Department with fever, tachycardia, rigors s/p recent prostate surgery and lozada catheter removal. Pt to be admitted for neutropenia and sepsis. Pt lives with his , independently. Discharge needs remain unclear at this time. CM will continue to follow. Date Signed: 07/09/2018 10:39 AM Electronically Signed By:Ernestina Galloway RN
[2018-07-09] MEDS ORDERED: HYDROmorphONE/DILAUDID 2 MG/ML INJ IVP ONE (12:22)
[2018-07-09] MEDS ORDERED: HYDROmorphONE/DILAUDID 1 MG/ML INJ ONE (12:24)
[2018-07-09] MEDS ORDERED: VANCOMYCIN 1.5 GM in D5W 250 ML IV SCH (12:30)
[2018-07-09] MEDS: MEROPENEM 1 GM in NS 100 ML IV SCH ×2 (13:38→20:07)
[2018-07-09] MEDS: VANCOMYCIN 1.5 GM in NS 250 ML IV SCH (14:55)
[2018-07-09] MEDS ORDERED: NS 1,000 ML IV ONE (15:53)
--- NOTE | 2018-07-09 15:54 | PDGENHP ---
History and Physical History and Physical: CC: Fever and vomiting HISTORY: This patient came to the ER today after having several rounds of emesis and dry heaves at home today, along with high fevers chills and sweats. Notably the patient had a laser prostate procedure for BPH 5 days ago. He had a Vázquez catheter in after that procedure. He had no problems with the procedure was doing quite well at home. Yesterday he went into his urologist office in [place] with a Vázquez catheter was removed. He describes that urine flow was in slower dribbles after removal of the Vázquez catheter but that he was voiding. Early this morning he had onset of chills and sweats with rigors. He did have high fevers. There was no abdominal pain but he was vomiting at home. He has not had a bowel movement yet today. No diarrhea. He does mention that he is feeling a burning sensation in the urethra when he passes urine and that it is slower again today than previous. He denies cough shortness of breath or chest pain. He denies any back or flank pain. He admits to a moderately severe headache without neurologic symptoms. The headache is generalized in location, not associated with neck pain or stiffness, and not associated with any but minimal photophobia. He does not recall any insect bites. He has not eaten any suspicious foods or had any significant travel. ROS: A comprehensive 10 system review revealed no other significant findings PAST MEDICAL HISTORY: Myocardial infarction and stent placement Diabetes mellitus Hyperlipidemia Low back pain Diverticulitis with complications requiring resection of 20 inches of colon Episode of vertigo felt most likely the be a benign peripheral vertigo, less likely TIA at the time of assessment Chronic severe arthropathy of left wrist, patient waiting for left wrist fusion surgery FAMILY MEDICAL HISTORY: Ovarian cancer Vertigo SOCIAL HISTORY: lives with his No tobacco or alcohol use MEDICATIONS: The patients list has been reconciled by our clinical pharmacist in the EMR. I have reviewed the list and ordered appropriate medicines. PHYSICAL EXAMINATION: Vital Signs: He has been tachycardic throughout the afternoon in a sinus rhythm , but blood pressures have been high, highest temperature so far 38.4, respirations good Party Demonstrator: Sinus tachycardia Examination: General: alert, oriented, good mentation, reasonably relaxed considering his illness Skin: Febrile, dry, good color, no rash HEENT: normal Neck: no mass or jvd Resps: relaxed Lungs: clear breath sounds Heart: regular, no murmur Abdomen: soft, nondistended, mild diffuse tenderness without guarding or rebound , +BS, no mass Upper Extremities: normal Lower Extremities: no edema, warm No Bleeding or bruising Neurologic: normal speech/language, 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, no focal weakness IV site: looks normal He has had bladder scanning done most recently on the med surge unit where his postvoid volume was 200 mL LABORATORY DATA: White blood cell count 0.78 with 560 neutrophils A comparison CBC from June 20 had a white blood cell count 5000 with normal neutrophils No anemia platelets normal Renal function good, glucose 145, liver panel normal Troponin negative Initial venous lactic acid 2.9 repeat was 2.0 Urinalysis with 10-15 white blood cells, 50-180 red blood cells RADIOLOGY STUDIES: I reviewed image from of single view AP chest x-ray in the ER, this is a normal x-ray by my reading 12 LEAD EKG: I reviewed 12 lead EKG tracing from the ER done today, compared with EKG tracing from February of this year. This shows sinus rhythm currently with tachycardia. There are old inferior and lateral Q-waves and T-wave inversions, with a little bit more prominent the T-wave inversions on this tracing compared to the past 1 ASSESSMENT: * ACUTE SEPSIS * POSSIBLE URINARY TRACT INFECTION, PRESENT ON ADMISSION, THIS WOULD BE CATHETER ASSOCIATED FROM OUTSIDE SURGERY * Symptoms are suggestive as described above, however unimpressive pyuria considering his recent surgery and 5 days of indwelling catheter * ABDOMINAL TENDERNESS, UNCERTAIN ETIOLOGY OR RELATION TO THE ABOVE * RECENT LASER PROSTATE SURGERY 5 DAYS AGO, VÁZQUEZ REMOVED YESTERDAY * DIABETES MELLITUS CURRENTLY IN GOOD CONTROL * CORONARY DISEASE WITH STENTS, STABLE AT PRESENT * HISTORY OF DIVERTICULITIS AND PARTIAL COLON RESECTION FOR THAT PLANS: * Continue current antibiotics, as reviewed with Dr. Madera * Give another bolus L of IV fluid now and continue IV infusion * Follow for resolution of sepsis * Re-examine his abdomen later this evening * Follow urine output and bladder emptying closely, consider intermittent straight caths if necessary * Follow his cultures closely * At present my suspicion for meningitis is very low; will follow closely for more suspicious presentation, in late June there would be some chance of mosquito borne viral meningitis I have reviewed the patient's case in detail with Dr. Faye Madera I have reviewed the patient's past medical records as part of this assessment, including previous hospital admission records and outpatient clinic laboratory and other records
[2018-07-09] MEDS: ASPIRIN EC 81 MG TAB PO SCH (16:16)
[2018-07-09] MEDS: TAMSULOSIN HCL 0.4 MG CAP PO SCH (16:16)
[2018-07-09] MEDS: NS 1,000 ML IV SCH (16:40)
[2018-07-09] MEDS: metFORMIN HCL 500 MG TAB PO SCH (17:05)
[2018-07-09] MEDS: CARVEDILOL 3.125 MG TAB PO SCH (17:05)
[2018-07-09] MEDS: glipiZIDE 5 MG TAB PO SCH (17:05)
[2018-07-09] MEDS: oxyCODONE IR 5 MG TAB PO PRN (17:05)
[2018-07-09] MEDS: ACETAMINOPHEN 500 MG TAB PO PRN (17:05)
--- NOTE | 2018-07-09 17:53 | GCON ---
[f rep st] CONSULTATION PATIENT NAME: ANGELA CHISHOLM DATE OF : 1950 INFECTIOUS DISEASE CONSULTATION DATE OF CONSULTATION: 07/09/2018 REFERRING PHYSICIAN: Cheo Cortez MD REASON FOR CONSULTATION: Sepsis of unclear etiology. HISTORY OF PRESENT ILLNESS: This is a 67-year-old male with a past medical history of diabetes, ramon nary artery disease, hyperlipidemia whose recent history is pertinent for undergoing a prostate vapor ization by Dr. Desai on 07/06/2018. The patient had a Anderson postoperatively, which was removed o n 07/08/2018. The patient did have dysuria and difficulty voiding, but was able to void. Initially was fine after Anderson removal. He was told to expect some dysuria as well as hematuria postoperativel y. He received a perioperative dose of Cipro for the procedure. He denies ever having a urinary tra ct infection. His current problems developed at 3 a.m. this morning when he developed a headache, se bri nausea and retching, no vomiting, coughing also to the point of retching, extreme malaise, chill s and rigors. This persisted for an hour or so, and he and his presented to the emergency room for further evaluation. He has some mild right lower quadrant pain. No diarrhea. Urinary symptoms have persisted as described above. He says his cough is less since he has been in the emergency room , but he still has a very severe headache that is not the worst of his life; those would be described as when he has had a concussion. He denies light sensitivity and neck stiffness. He has had no sic k contacts. No contact with children. No recent international travel. Last was 1 year ago. They d o care for their son's dog occasionally and have 2 cats at home. They had trouble with raccoons josé manuel ng in their home through the cat door, but they have not come into direct contact with the raccoons a nd no biting. The raccoons have not defected in the home. PAST MEDICAL HISTORY: 1. Coronary artery disease. He has had 3 stents. Denies any known valvular disease. 2. Diabetes x15 years. 3. Hyperlipidemia. 4. Chronic back pain. 5. Diverticulitis with a colon resection in the past. SOCIAL HISTORY: He lives with his . Former smoker. No alcohol or illicit drugs. 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 He is originally from [place], has been in [place] for 20 years. [place] [facility] [place] FAMILY HISTORY: Ovarian cancer in his mother. No known CVAs. REVIEW OF SYSTEMS: A complete 10-point review of systems was performed and is negative except as men tioned in the HPI. PHYSICAL EXAM: VITAL SIGNS: T-max is 38. T current is 37. Blood pressure 136/83, heart rate 136 t o 112, saturation 94% on room air. GENERAL: This is a moderately distressed male due to severity of headache who has fluent speech and is answering questions appropriately. HEENT: No conjunctival in jection. His pupils are reactive bilaterally. Good dentition. Slightly dry mucous membranes. No o ral ulcerations. No exudates in the posterior pharynx. Tongue is midline. NECK: Supple with full range of motion. Able to touch his chin to his chest without difficulty. CARDIOVASCULAR: Tachycard ic. Murmur is not appreciated, but exam limited by tachycardia. CHEST: He has crackles, right grea ter than left. ABDOMEN: Mildly distended. Bowel sounds are present. He has discomfort to palpatio n of the right lower quadrant. EXTREMITIES: No clubbing, cyanosis, or edema. SKIN: Patient has di ffuse blanching hyperemia, is not urticaria, but prominent, most prominent on his trunk and back. Ne urologically, cranial nerves are intact. He is moving all 4 extremities equally, and he is alert and oriented x4. LABORATORY: White count 0.78, 71% neutrophils, 24% lymphocytes, hematocrit 42, platelets 167, creati nine 0.9. LFTs are pending. Urinalysis showed 50-182 RBCs, WBCs 10-15. Blood and urine cultures ar e collected and are pending. Chest x-ray is ordered and pending. ASSESSMENT/PLAN: This is a 67-year-old male who presents with underlying diabetes and recent prostat e procedure, presents with signs and symptoms of severe sepsis. Notable symptoms include headache wi thout meningismus, nausea, vomiting, coughing, difficulty urinating, and mild dysuria. Urinalysis is somewhat unimpressive for postoperative urinalysis, primarily composed of red blood cells with a few white blood cells. Differential diagnosis for source certainly could be urinary source with recent procedure, but also would consider pneumonia or intraabdominal source. Somewhat unexpectedly, patien cait had fairly severe leukopenia, likely reflecting the severity of his sepsis. Due to unclear etiolog y of pneumonia, underlying diabetes and recent surgical procedure would cover patient broadly until a dditional information is known. 1. Obtain chest x-ray. 2. Would start meropenem 1 g IV q.8 and vancomycin 1.5 g IV q.12 based on normal creatinine clearanc e and weight. These would both provide central nervous system coverage. At this time, I will contin ue to monitor clinically, and I do not think that a lumbar puncture is warranted at this time, but wi ll closely monitor. 3. Add on LFTs to existing blood work. 4. Historical feature of the raccoon, I do not think this is a pertinent exposure history for concer n of rabies or other zoonotic infection. Time was 80 minutes, greater than 50% of time spent in education and counseling of the patient regard ing differential diagnosis. This was also discussed with his at bedside. Care was coordinated with Dr. Reyna. Thank you for this consultation. /[id number]/MODL
[2018-07-09] MEDS: INSULIN DETEMIR 18 UNIT SQ SCH (20:06)
[2018-07-09] MEDS: PHENAZOPYRIDINE HCL 200 MG TAB PO SCH (20:06)
[2018-07-09] MEDS ORDERED: INSULIN GLARGINE 100 UNITS/ML UNIT SC SCH (21:00)
[2018-07-10] MEDS: VANCOMYCIN 1.5 GM in NS 250 ML IV SCH (00:32)
[2018-07-10] MEDS: oxyCODONE IR 5 MG TAB PO PRN (00:42)
[2018-07-10] MEDS: MEROPENEM 1 GM in NS 100 ML IV SCH ×3 (04:07→19:51)
[2018-07-10] MEDS: ACETAMINOPHEN 500 MG TAB PO PRN ×3 (04:16→19:49)
[2018-07-10] MEDS: NS 1,000 ML IV SCH ×4 (04:17→19:50)
[2018-07-10 04:48] LABS: PLATELET COUNT 97 10^3/uL (150-400)
[2018-07-10] MEDS: MULTIVITAMINS 1 EACH TAB PO SCH (08:15)
[2018-07-10] MEDS: glipiZIDE 5 MG TAB PO SCH ×2 (08:15→17:55)
[2018-07-10] MEDS: metFORMIN HCL 500 MG TAB PO SCH ×2 (08:15→17:55)
[2018-07-10] MEDS: CHOLECALCIFEROL VIT D3 1,000 UNITS TAB PO SCH (08:15)
[2018-07-10] MEDS: PHENAZOPYRIDINE HCL 200 MG TAB PO SCH ×2 (08:15→13:58)
[2018-07-10] MEDS: ROSUVASTATIN CALCIUM 20 MG TAB PO SCH (08:15)
[2018-07-10] MEDS: TAMSULOSIN HCL 0.4 MG CAP PO SCH (08:16)
[2018-07-10] MEDS: CARVEDILOL 3.125 MG TAB PO SCH ×2 (08:16→17:55)
[2018-07-10] MEDS: ASPIRIN EC 81 MG TAB PO SCH (08:16)
[2018-07-10] MEDS: PIOGLITAZONE HCL 15 MG TAB PO SCH (08:16)
[2018-07-10] MEDS: ENOXAPARIN 40 MG/0.4 ML SYR SC SCH (08:16)
[2018-07-10] MEDS: INSULIN DETEMIR 10 UNIT SQ SCH (10:13)
--- NOTE | 2018-07-10 13:57 | HOSPPROG ---
Hospitalist Progress Note Assessment/Plan: DIAGNOSES: * ACUTE SEPSIS/E COLI BACTEREMIA * POSSIBLE URINARY TRACT INFECTION, PRESENT ON ADMISSION, THIS WOULD BE CATHETER ASSOCIATED FROM OUTSIDE SURGERY * Symptoms are suggestive as described above, however unimpressive pyuria considering his recent surgery and 5 days of indwelling catheter * ABDOMINAL TENDERNESS, UNCERTAIN ETIOLOGY OR RELATION TO THE ABOVE * NEUTROPENIA PROBABLY CAUSED BY SEPSIS, CURRENTLY RESOLVED * RECENT LASER PROSTATE SURGERY 5 DAYS AGO, VÁZQUEZ REMOVED YESTERDAY * DIABETES MELLITUS CURRENTLY IN GOOD CONTROL * CORONARY DISEASE WITH STENTS, STABLE AT PRESENT * HISTORY OF DIVERTICULITIS AND PARTIAL COLON RESECTION FOR THAT Clinically he is somewhat improved but remains fairly toxic with tachycardia, malaise, headaches, generalized weakness and poor appetite. There is no sign of organ dysfunction at present The etiology of his infection is still uncertain, with possible urinary tract infection, less likely abdominal infection, other possibilities. I reviewed the case in detail today with Dr. Talib Collier. PLANS: * Continue current antibiotics and follow cultures closely for results of sensitivities or growth of other organisms, possible growth in urine * Will review again with Dr. Collier after examined the patient, determine whether abdominal CT at this time is warranted * Continue IV hydration, follow vital signs very closely * At this time my suspicion for meningitis remains very low and I would not recommend lumbar puncture SUBJECTIVE: The patient still feels quite ill but slightly better than yesterday. He is having less rigors, a little bit less malaise. He remains quite weak, his headache is a little bit less than yesterday, still with no neurologic symptoms or stiff neck. He has had no nausea or vomiting He is having less discomfort passing urine those unclear if that is due to peridium or treatment of his illness No nausea or vomiting, no bowel movements here, still with some very mild abdominal discomfort OBJECTIVE Vitals reviewed: Less fever so far today than yesterday, remains tachycardic but now more in the range of 105. Blood pressure and respirations stable Exam: alert oriented, looks fairly ill skin warm dry color ok resps not labored lungs clear BSs heart regular abd soft nondistended, normal bowel sounds present, still some diffuse tenderness without guarding or rebound, less tender than yesterday At this time still no CVA or flank tenderness limbs warm, no edema iv site ok Laboratory data: White blood cell count improved 6000 with good neutrophils, hemoglobin and platelets stable Stable renal function Microbiology: All blood cultures now growing E coli with sensitivities pending No growth yet in urine culture Objective: Vital Signs Temp Pulse Resp BP Pulse Ox 37.1 C 96 18 117/74 93 07/10/18 12:01 07/10/18 12:01 07/10/18 12:01 07/10/18 12:01 07/10/18 12:01 Laboratory Results 07/10/18 08:30 07/10/18 04:21 07/09/18 07/10/18 07/11/18 06:59 06:59 06:59 Intake Total 3862 Output Total 600 Balance 3862 -600 - Time Spent With Patient Time Spent with Patient: greater than 35 minutes Time Spent with Patient: Greater than 35 minutes spent on this patients care, greater than 50% of time spent counseling, educating, and coordinating care regarding the above mentioned plan. ICD10 Worksheet Patient Problems: Problems Problem Status Onset Neutropenia Acute Pyelonephritis Acute Severe sepsis Acute Tachycardia Acute CAD - Coronary arteriosclerosis Active Chest pain Active Dizziness Acute Transient visual loss Acute Vertigo Acute
--- NOTE | 2018-07-10 14:11 | PCMIDPN ---
Assessment/Plan: Assessment: E coli sepsis following laser transurethral resection of the prostate. The urinalysis does not show any clear inflammatory changes as would be seen in a classic urinary tract infection although I think that the chances that the E coli in his blood trans located over the recent TURP operative site is quite high. Patient is being covered with IV meropenem and his white blood cell count has recovered from yesterday to normal levels. Plan to continue the meropenem and follow the sensitivity pattern of the E coli isolate. The other question is the patient does have a history of significant diverticulitis that required a portion of his colon to be removed. He has mild abdominal pain and perhaps a CT scan would rule out whether he has diverticulitis and remaining areas of the colon. This would be coincidental to his TURP surgery and therefore be of a lower likelihood as to etiology of the bacteremia. Plan: 1. Continue IV meropenem 2. Consider CT scan of the abdomen for rule out diverticulitis. 3. Follow clinical course. Follow CBC. New 07/10/18 14:08 07/10/18 14:09 Subjective: Patient is resting in his hospital bed. His is in the room. He still has a headache but it is better than yesterday. He has no meningeal signs. Objective: Meropenem # 2 Vital Signs Temp Pulse Resp BP Pulse Ox 37.1 C 96 18 117/74 93 07/10/18 12:01 07/10/18 12:01 07/10/18 12:01 07/10/18 12:01 07/10/18 12:01 Laboratory Results 07/10/18 08:30 07/10/18 04:21 07/09/18 07/10/18 07/11/18 05:59 05:59 05:59 Intake Total 3862 Output Total 600 Balance 3862 -600 - Physical Exam General Appearance: WD/WN, alert, no apparent distress, toxic (Mildly) Respiratory: lungs clear, normal breath sounds, No respiratory distress Cardiac/Chest: regular rate, rhythm, No tachycardia Abdomen: soft, No non-tender (Mild tenderness in both flanks.), No distended, No guarding Skin: normal color, warm/dry, No rash Neuro/Psych: alert, normal mood/affect, oriented x 3 ICD10 Worksheet Patient Problems: Problems Problem Status Onset Neutropenia Acute Pyelonephritis Acute Severe sepsis Acute Tachycardia Acute CAD - Coronary arteriosclerosis Active Chest pain Active Dizziness Acute Transient visual loss Acute Vertigo Acute
[2018-07-10] MEDS: traMADol 50 MG TAB PO PRN ×2 (14:25→21:07)
--- NOTE | 2018-07-10 16:55 | PDMN ---
Medical Necessity Medical necessity: Pt meets IP criteria per MD & MCG M-160; est los >2 mn for eval/tx of sepsis w/abdominal tenderness & possible UTI; requiring further monitoring, ID consult, IV abx & IVFs; hx recent transurethral resection prostate, diabetes, diverticulitis, [place], CAD; per H&P & order 07/09/18
[2018-07-10] MEDS: ONDANSETRON 4 MG/2 ML VIAL IVP PRN (19:49)
[2018-07-10] MEDS: INSULIN DETEMIR 18 UNIT SQ SCH (20:56)
[2018-07-11] MEDS: ONDANSETRON 4 MG/2 ML VIAL IVP PRN (03:20)
[2018-07-11] MEDS: traMADol 50 MG TAB PO PRN ×3 (03:22→18:07)
[2018-07-11] MEDS: NS 1,000 ML IV SCH ×2 (03:23→10:57)
[2018-07-11] MEDS: MEROPENEM 1 GM in NS 100 ML IV SCH (03:23)
[2018-07-11 04:58] LABS: PLATELET COUNT 83 10^3/uL (150-400)
[2018-07-11] MEDS: CARVEDILOL 3.125 MG TAB PO SCH ×2 (09:18→18:42)
[2018-07-11] MEDS: ROSUVASTATIN CALCIUM 20 MG TAB PO SCH (09:18)
[2018-07-11] MEDS: metFORMIN HCL 500 MG TAB PO SCH ×2 (09:18→18:42)
[2018-07-11] MEDS: TAMSULOSIN HCL 0.4 MG CAP PO SCH (09:19)
[2018-07-11] MEDS: PIOGLITAZONE HCL 15 MG TAB PO SCH (09:19)
[2018-07-11] MEDS: INSULIN DETEMIR 10 UNIT SQ SCH (09:19)
[2018-07-11] MEDS: MULTIVITAMINS 1 EACH TAB PO SCH (09:19)
[2018-07-11] MEDS: CHOLECALCIFEROL VIT D3 1,000 UNITS TAB PO SCH (09:19)
[2018-07-11] MEDS: ASPIRIN EC 81 MG TAB PO SCH (09:19)
[2018-07-11] MEDS: glipiZIDE 5 MG TAB PO SCH ×2 (09:19→18:42)
--- NOTE | 2018-07-11 11:09 | ASMTCMCOM ---
CM Note CM Note Notes: Pt is on IV meropenem for e coli sepsis pe chart notes. Pt to get a CT scan today. DC plan is TBD, Date Signed: 07/11/2018 11:08 AM Electronically Signed By:Megha Casas LCSW
--- NOTE | 2018-07-11 14:20 | PCMIDPN ---
Assessment/Plan: Assessment: E coli sepsis following laser transurethral resection of the prostate. The urinalysis does not show any clear inflammatory changes as would be seen in a classic urinary tract infection although I think that the chances that the E coli in his blood trans located over the recent TURP operative site is quite high. Patient is being covered with IV meropenem but will change this to IV ceftriaxone due to sensitivity of his isolate. Renewed headaches are a bit of mild concern. Will order a non contrasted CT scan of the head. Doubt that there is any etiology to be seen. This may just be caffeine withdrawal headaches. Plan: 1. Discontinue meropenem. 2. CT scan of the head without contrast. 3. Start ceftriaxone 2 g daily. Subjective: Patient complains again about headaches rated 7 to 8/10. Otherwise doing well. No fevers or chills. Objective: Meropenem # 3 Vital Signs Temp Pulse Resp BP Pulse Ox 37.0 C 69 16 142/87 H 94 07/11/18 12:02 07/11/18 12:02 07/11/18 12:02 07/11/18 12:02 07/11/18 12:02 Laboratory Results 07/11/18 04:43 07/10/18 04:21 07/10/18 07/11/18 07/12/18 05:59 05:59 05:59 Intake Total 3862 8190 Output Total 7876 875 Balance 3862 1903 -875 - Physical Exam General Appearance: WD/WN, alert, no apparent distress, non-toxic Respiratory: lungs clear, normal breath sounds, No respiratory distress Cardiac/Chest: regular rate, rhythm, No tachycardia Abdomen: non-tender, soft, distended, No mass Skin: normal color, warm/dry, No rash Neuro/Psych: alert, normal mood/affect, oriented x 3 ICD10 Worksheet Patient Problems: Problems Problem Status Onset Neutropenia Acute Pyelonephritis Acute Severe sepsis Acute Tachycardia Acute CAD - Coronary arteriosclerosis Active Chest pain Active Dizziness Acute Transient visual loss Acute Vertigo Acute
[2018-07-11] MEDS ORDERED: ONDANSETRON DISINTEGRATING 4 MG TAB PO PRN (16:56)
[2018-07-11] MEDS: ENOXAPARIN 40 MG/0.4 ML SYR SC SCH (17:13)
--- NOTE | 2018-07-11 17:44 | HOSPPROG ---
Hospitalist Progress Note Assessment/Plan: DIAGNOSES: * ACUTE SEPSIS/E COLI BACTEREMIA * URINARY TRACT INFECTION, PRESENT ON ADMISSION, THIS WOULD BE CATHETER ASSOCIATED FROM OUTSIDE SURGERY WITH POSTOP VÁZQUEZ CATHETER * ABDOMINAL TENDERNESS, UNCERTAIN ETIOLOGY OR RELATION TO THE ABOVE * NEUTROPENIA PROBABLY CAUSED BY SEPSIS, CURRENTLY RESOLVED * THROMBOCYTOPENIA AND ANEMIA, MORE RECENT ONSET, ? DUE TO SEPSIS MOST LIKELY * ONGOING SEVERE HEADACHES DUE TO ABOVE * Exam so far not consistent with meningitis * CT scan negative * URINARY RETENTION DUE TO INFECTION AND RECENT SURGERY * High as postvoid residual so far around 200 cc (better than his preop), very slow flow during voiding * RECENT LASER PROSTATE SURGERY 5 DAYS AGO, VÁZQUEZ REMOVED YESTERDAY * DIABETES MELLITUS CURRENTLY IN GOOD CONTROL * CORONARY DISEASE WITH STENTS, STABLE AT PRESENT * HISTORY OF DIVERTICULITIS AND PARTIAL COLON RESECTION FOR THAT Overall today clinically improved with less symptoms, a decreased heart rate, absence of fever Urine cultures now with growth of the same E coli that her in blood cultures strongly suggestive that this is in fact a surgery/catheter induced urinary infection Will watch his platelets closely, suspect that this is decrease in platelets due to sepsis, doubt a heparin-induced thrombocytopenia PLANS: * Continue current antibiotics * Continue symptomatic treatment with Pyridium for dysuria, analgesics for headache * Stop IV hydration at this time, follow vital signs very closely * Repeat CBC to follow the hemoglobin and platelets; Lovenox held at the moment with the decreasing platelets * Encourage frequent voiding, continue bladder scans to ensure that he is voiding adequately, consider straight cath if necessary to get more complete voiding but not needed so far * At this time my suspicion for meningitis remains very low and I would not recommend lumbar puncture SUBJECTIVE: Still having headaches that her intermittently fairly severe but they are less frequent than earlier Appetite still poor but he is eating and drinking No rigors OBJECTIVE Vitals reviewed: No fever and tachycardia has resolved Exam: alert oriented, looks less toxic skin warm dry color ok resps not labored lungs clear BSs heart regular abd soft nondistended, normal bowel sounds present, notably less tender At this time still no CVA or flank tenderness limbs warm, no edema iv site ok Laboratory data: White blood cell count stable 6000 with good neutrophils, hemoglobin and platelets have both dropped today Sugars in good range Microbiology: All blood cultures now growing E coli resistant to ampicillin, Gent, Levaquin E coli now growing from urine cultures with the same sensitivity as blood cultures Objective: Vital Signs Temp Pulse Resp BP Pulse Ox 36.9 C 71 20 131/78 H 97 07/11/18 16:46 07/11/18 16:46 07/11/18 16:46 07/11/18 16:46 07/11/18 16:46 Laboratory Results 07/11/18 04:43 07/10/18 04:21 07/10/18 07/11/18 07/12/18 06:59 06:59 06:59 Intake Total 3862 4168 1200 Output Total 2245 1450 Balance 3862 1923 -250 ICD10 Worksheet Patient Problems: Problems Problem Status Onset Neutropenia Acute Pyelonephritis Acute Severe sepsis Acute Tachycardia Acute CAD - Coronary arteriosclerosis Active Chest pain Active Dizziness Acute Transient visual loss Acute Vertigo Acute
[2018-07-11] MEDS: PHENAZOPYRIDINE HCL 200 MG TAB PO SCH (18:06)
[2018-07-11] MEDS: IBUPROFEN 200 MG TAB PO PRN (18:07)
[2018-07-11] MEDS: INSULIN DETEMIR 18 UNIT SQ SCH (22:09)
[2018-07-12 05:22] LABS: PLATELET COUNT 109 10^3/uL (150-400)
--- NOTE | 2018-07-12 08:10 | PCMIDPN ---
Assessment/Plan: # sepsis- resolved # E coli bacteremia suspected urinary source as occurred s/p prostate procedure. Patient received perioperative fluoroquinolones, as expected E coli found in urine and blood is quinolone resistant. Antibiotics narrowed to ceftriaxone yesterday. Leukopenia resolved. Vital signs much improved --will plan 10-14 days of IV ceftriaxone for complicated UTI, interagency completed --PICC line placement today Meds, Abx #3 ceftriaxone 2gm IV daily #2 Subjective: Patient endorses feeling significantly improved, still mild headache 5/10. Is having some intermittent dysuria that is improved with a Pyridium. Describes large volume of urine with standing No diarrhea no rash Objective: Vital Signs Temp Pulse Resp BP Pulse Ox 36.6 C 72 16 131/72 H 95 07/12/18 04:00 07/12/18 04:00 07/12/18 04:00 07/12/18 04:00 07/12/18 04:00 Laboratory Results 07/12/18 05:04 07/10/18 04:21 07/11/18 07/12/18 07/13/18 05:59 05:59 05:59 Intake Total 4168 3702 Output Total 2245 4150 750 Balance 4813 -272 -705 - Physical Exam General Appearance: alert, no apparent distress EENT: No scleral icterus, No thrush Respiratory: lungs clear, No accessory muscle use Cardiac/Chest: regular rate, rhythm Extremities: No pedal edema Abdomen: normal bowel sounds, non-tender, soft, other (much improved discomfort RLQ) Skin: No rash Neuro/Psych: alert, normal mood/affect, oriented x 3 - Time Spent With Patient Time Spent with Patient: greater than 35 minutes (reviewed course of treatment ; picc line placement ; coordination of care with Dr. Valdes) Time Spent with Patient: Greater than 35 minutes spent on this patients care, greater than 50% of time spent counseling, educating, and coordinating care regarding the above mentioned plan. ICD10 Worksheet Patient Problems: Problems Problem Status Onset Neutropenia Acute Pyelonephritis Acute Severe sepsis Acute Tachycardia Acute CAD - Coronary arteriosclerosis Active Chest pain Active Dizziness Acute Transient visual loss Acute Vertigo Acute
[2018-07-12] MEDS: IBUPROFEN 200 MG TAB PO PRN ×3 (08:17→23:55)
[2018-07-12] MEDS: ASPIRIN EC 81 MG TAB PO SCH (08:17)
[2018-07-12] MEDS: ROSUVASTATIN CALCIUM 20 MG TAB PO SCH (08:19)
[2018-07-12] MEDS: TAMSULOSIN HCL 0.4 MG CAP PO SCH (08:19)
[2018-07-12] MEDS: MULTIVITAMINS 1 EACH TAB PO SCH (08:19)
[2018-07-12] MEDS: glipiZIDE 5 MG TAB PO SCH ×2 (08:19→17:14)
[2018-07-12] MEDS: CHOLECALCIFEROL VIT D3 1,000 UNITS TAB PO SCH (08:19)
[2018-07-12] MEDS: PIOGLITAZONE HCL 15 MG TAB PO SCH (08:20)
[2018-07-12] MEDS: ENOXAPARIN 40 MG/0.4 ML SYR SC SCH (08:20)
[2018-07-12] MEDS: CARVEDILOL 3.125 MG TAB PO SCH ×2 (08:20→17:14)
[2018-07-12] MEDS: metFORMIN HCL 500 MG TAB PO SCH ×2 (08:20→17:14)
[2018-07-12] MEDS: traMADol 50 MG TAB PO PRN ×2 (08:57→20:42)
[2018-07-12] MEDS ORDERED: ALTEPLASE 2 MG VIAL IVP PRN (08:59)
[2018-07-12] MEDS: PHENAZOPYRIDINE HCL 200 MG TAB PO SCH ×3 (09:20→20:53)
[2018-07-12] MEDS: INSULIN DETEMIR 10 UNIT SQ SCH (09:34)
--- NOTE | 2018-07-12 09:52 | PDIAF ---
- Diagnosis Diagnosis: E coli bacteremia Code Status: Full Code - Medication Management Discharge Medications: Medications to Continue on Transfer Pioglitazone HCl [Actos 15mg (*)] 30 mg PO DAILY 12/29/12 [Last Taken 07/08/18] Calcium Carbonate [Oyster Shell Calcium 500 mg (*)] 500 mg PO DAILY 02/18/17 [ Last Taken 07/08/18] Aspirin EC [Aspirin EC 81 mg (*)] 81 mg PO DAILY 07/09/18 [Last Taken 07/08/18] Carvedilol [Coreg (*)] 3.125 mg PO BIDMEAL 07/09/18 [Last Taken 07/08/18] Cholecalciferol Vit D3 [Vitamin D3 (*)] 1,000 units PO DAILY 07/09/18 [Last Taken 07/08/18] Insulin Detemir [Levemir Flextouch] 18 unit SQ HS 07/09/18 [Last Taken 07/08/18] Insulin Detemir [Levemir] 10 unit SQ DAILY 07/09/18 [Last Taken 07/08/18] Multivitamins [Multivitamin (*)] 1 each PO DAILY 07/09/18 [Last Taken 07/08/18] Rosuvastatin Calcium [Crestor 20mg (*)] 20 mg PO DAILY 07/09/18 [Last Taken ] Tadalafil [Cialis] 5 mg PO HS 07/09/18 [Last Taken 07/08/18] glipiZIDE [Glipizide] 10 mg PO BIDMEAL 07/09/18 [Last Taken 07/08/18] metFORMIN HCL [Metformin HCl] 1,000 mg PO BIDMEAL 07/09/18 [Last Taken 07/08/18] Halfway Antibiotics: ceftriaxone 1gm IV daily Loss Prevention And Safety Manager Antibiotic Stop Date: 07/22/18 Discharge Medications: Refer to the Discharge Home Medication list for PRN reason. PICC Care - Routine: Yes - Orders Services needed: Home Care, Registered Nurse Home Care Face to Face: I certify that this patient was under my care and that I had the required [id number] encounter meeting the encounter requirements on the discharge day. My findings support the fact that the patient is homebound as defined in Home Care Face to Face Continued: CMS Chapter 7 Medicare Benefits Manual 30.1.1 , The condition of the patient is such that there exists a normal inability to leave home and consequently, leaving home would require a considerable and taxing effort. Isolation Type: Neutropenic Isolation - Labs/Radiology CBC w/diff Date: 07/19/18 (weekly Wednesday) CMP Date: 07/19/18 (weekly Wednesday) Call or Fax Lab and Imaging Results to: Faye Madera MD [facility] at fax [phone] - Follow Up Care Current Providers and Referrals: Nora Verma MD [Primary Care Provider] - As per Instructions Faye Madera MD [Medical Doctor] - follow up in 1 week
--- NOTE | 2018-07-12 10:19 | HOSPPROG ---
Hospitalist Progress Note Assessment/Plan: 67 yo M w recent laser prostatectomy here w sepsis of urinary source, e coli bacteremia sepsis: source is urine septic physiology has resolved e coli uti: FQ resistant, on ceftriaxone dysuria: relieved w pyridium bacteremia: source is urine clinically improving picc line today 14 days abx proph: LMWH cad: asa/BB dispo: inpt Subjective: case d/w dr hodges. afebrile Objective: Vital Signs Temp Pulse Resp BP Pulse Ox 36.9 C 92 18 150/87 H 94 07/12/18 08:14 07/12/18 08:20 07/12/18 08:14 07/12/18 08:20 07/12/18 08:14 Laboratory Results 07/12/18 05:04 07/10/18 04:21 07/11/18 07/12/18 07/13/18 05:59 05:59 05:59 Intake Total 4168 3702 Output Total 2245 4150 750 Balance 0808 -692 -880 - Physical Exam Constitutional: no apparent distress, appears nourished Eyes: PERRL, anicteric sclera Ears, Nose, Mouth, Throat: moist mucous membranes, hearing normal Cardiovascular: regular rate and rhythym, no murmur, rub, or gallop Respiratory: no respiratory distress, no rales or rhonchi Gastrointestinal: normoactive bowel sounds, soft, non-tender abdomen Genitourinary: no bladder fullness, No lozada in urethra Skin: warm, normal color Musculoskeletal: full muscle strength, no muscle tenderness Neurologic: AAOx3, sensation intact bilaterally ICD10 Worksheet Patient Problems: Problems Problem Status Onset Neutropenia Acute Pyelonephritis Acute Severe sepsis Acute Tachycardia Acute CAD - Coronary arteriosclerosis Active Chest pain Active Dizziness Acute Transient visual loss Acute Vertigo Acute
--- NOTE | 2018-07-12 13:52 | ASMTCMCOM ---
CM Note CM Note Notes: Pt had a PICC line inserted. He is hoping to return home tomorrow or the next day. He would prefer to have his infusion out-pt. CM to follow. D/C Plan: Independent with out-patient infusion services. Date Signed: 07/12/2018 01:35 PM Electronically Signed By:Jocelynn Wilhelm
[2018-07-12] MEDS: NS 1,000 ML IV SCH ×2 (14:59→21:03)
[2018-07-12] MEDS ORDERED: OPIUM/BELLADONNA ALKALO SUPP PR ONE (15:30)
[2018-07-12] MEDS: INSULIN DETEMIR 18 UNIT SQ SCH (21:05)
[2018-07-13] MEDS: traMADol 50 MG TAB PO PRN ×2 (03:53→12:26)
[2018-07-13 08:00] LABS: PLATELET COUNT 129 10^3/uL (150-400)
[2018-07-13] MEDS: INSULIN DETEMIR 10 UNIT SQ SCH (09:08)
[2018-07-13] MEDS: TAMSULOSIN HCL 0.4 MG CAP PO SCH (09:11)
[2018-07-13] MEDS: glipiZIDE 5 MG TAB PO SCH ×2 (09:11→17:22)
[2018-07-13] MEDS: PIOGLITAZONE HCL 15 MG TAB PO SCH (09:12)
[2018-07-13] MEDS: metFORMIN HCL 500 MG TAB PO SCH ×2 (09:13→17:21)
[2018-07-13] MEDS: ASPIRIN EC 81 MG TAB PO SCH (09:14)
[2018-07-13] MEDS: CARVEDILOL 3.125 MG TAB PO SCH ×2 (09:15→17:22)
[2018-07-13] MEDS: CHOLECALCIFEROL VIT D3 1,000 UNITS TAB PO SCH (09:15)
[2018-07-13] MEDS: MULTIVITAMINS 1 EACH TAB PO SCH (09:16)
[2018-07-13] MEDS: ROSUVASTATIN CALCIUM 20 MG TAB PO SCH (09:17)
[2018-07-13] MEDS: PHENAZOPYRIDINE HCL 200 MG TAB PO SCH ×3 (09:17→18:27)
[2018-07-13] MEDS: ENOXAPARIN 40 MG/0.4 ML SYR SC SCH (09:18)
--- NOTE | 2018-07-13 09:46 | PCMIDPN ---
Assessment/Plan: # sepsis- resolved # E coli bacteremia suspected urinary source as occurred s/p prostate procedure. Patient received perioperative fluoroquinolones, as expected E coli found in urine and blood is quinolone resistant. --ceftriaxone through 07/22/18; interagency completed --only outstanding issue is if patient is safe for discharge referred from physical therapy standpoint --no need to repeat blood cultures Meds, Abx #4 ceftriaxone 2gm IV daily #3 Microbiology 07/09 blood cultures (2) E coli, ceftriaxone DEVYN less than 1; fluoroquinolone resistant 07/09 urine culture: E coli: Same susceptibility as blood Subjective: Continues to feel a little stronger, still fatigue is his biggest complaint. Also complaining of fairly large volumes of urine every 45 min. Dysuria has resolved Objective: Vital Signs Temp Pulse Resp BP Pulse Ox 36.9 C 69 16 143/78 H 92 07/13/18 08:00 07/13/18 09:15 07/13/18 03:12 07/13/18 09:15 07/13/18 08:00 Laboratory Results 07/13/18 07:50 07/10/18 04:21 07/12/18 07/13/18 07/14/18 05:59 05:59 05:59 Intake Total 3702 3314 Output Total 4150 3150 700 Balance -448 164 -700 - Physical Exam General Appearance: alert, no apparent distress EENT: other (Normal mucous membranes) Respiratory: lungs clear, No accessory muscle use Neck: supple Cardiac/Chest: regular rate, rhythm Extremities: No pedal edema Abdomen: normal bowel sounds, non-tender, soft, No distended Male Genitalia: other (No suprapubic tenderness) Skin: No rash Neuro/Psych: alert, normal mood/affect, oriented x 3 - Line/s RUE PICC Lines: No drainage, No erythema - Time Spent With Patient Time Spent with Patient: greater than 35 minutes Time Spent with Patient: Greater than 35 minutes spent on this patients care, greater than 50% of time spent counseling, educating, and coordinating care regarding the above mentioned plan. ICD10 Worksheet Patient Problems: Problems Problem Status Onset Neutropenia Acute Pyelonephritis Acute Severe sepsis Acute Tachycardia Acute CAD - Coronary arteriosclerosis Active Chest pain Active Dizziness Acute Transient visual loss Acute Vertigo Acute
[2018-07-13] MEDS: IBUPROFEN 200 MG TAB PO PRN ×2 (10:46→21:17)
--- NOTE | 2018-07-13 14:41 | HOSPPROG ---
Hospitalist Progress Note Assessment/Plan: 67 yo M w recent laser prostatectomy here w sepsis of urinary source, e coli bacteremia sepsis: source is urine septic physiology has resolved polyuria: suspect he is mobilzing fluid from volume resuscitation check lytes unsteadiness: did ok w PT continue PT e coli uti: FQ resistant, on ceftriaxone dysuria: relieved w pyridium bacteremia: source is urine clinically improving picc line today 14 days abx proph: LMWH cad: asa/BB dispo: inpt Subjective: case d/w dr hodges. c/o polyuria and unsteadiness on feet Objective: Vital Signs Temp Pulse Resp BP Pulse Ox 36.9 C 80 16 129/66 H 93 07/13/18 12:00 07/13/18 12:00 07/13/18 12:00 07/13/18 12:00 07/13/18 12:00 Laboratory Results 07/13/18 07:50 07/10/18 04:21 07/12/18 07/13/18 07/14/18 05:59 05:59 05:59 Intake Total 3702 3314 Output Total 4150 3150 950 Balance -448 164 -950 - Physical Exam Constitutional: no apparent distress, appears nourished Eyes: PERRL, anicteric sclera Ears, Nose, Mouth, Throat: moist mucous membranes, hearing normal Cardiovascular: regular rate and rhythym, no murmur, rub, or gallop Respiratory: no respiratory distress, no rales or rhonchi Gastrointestinal: normoactive bowel sounds, soft, non-tender abdomen Genitourinary: no bladder fullness, No lozada in urethra Skin: warm, normal color Musculoskeletal: full muscle strength ICD10 Worksheet Patient Problems: Problems Problem Status Onset Neutropenia Acute Pyelonephritis Acute Severe sepsis Acute Tachycardia Acute CAD - Coronary arteriosclerosis Active Chest pain Active Dizziness Acute Transient visual loss Acute Vertigo Acute
[2018-07-13] MEDS: INSULIN DETEMIR 18 UNIT SQ SCH (21:19)
[2018-07-14 05:00] LABS: PLATELET COUNT 155 10^3/uL (150-400)
--- NOTE | 2018-07-14 08:28 | GCON ---
[f rep st] CONSULTATION INFECTIOUS DISEASE CONSULTATION DATE OF CONSULTATION: 07/09/2018 REFERRING PHYSICIAN: Cheo Cortez MD REASON FOR CONSULTATION: Sepsis of unclear etiology. HISTORY OF PRESENT ILLNESS: This is a 67-year-old male with a past medical history of diabetes, coronary artery disease, hyperlipidemia whose recent history is pertinent for undergoing a prostate vaporization by Dr. Desai on 07/06/2018. The patient had a Anderson postoperatively, which was removed on 07/08. The patient did have dysuria and difficulty voiding, but was able to void. Initially was fine after Anderson removal. He was told to expect some dysuria as well as hematuria postoperatively. He received a perioperative dose of Cipro for the procedure. He denies ever having a urinary tract infection. His current problems developed at 3 a.m. this morning when he developed a headache, severe nausea and retching, no vomiting, coughing also to the point of retching, extreme malaise, chills and rigors. This persisted for an hour or so, and he and his presented to the emergency room for further evaluation. He has some mild right lower quadrant pain. No diarrhea. Urinary symptoms have persisted as described above. He says his cough is less since he has been in the emergency room, but he still has a very severe headache that is not the worst of his life; those would be described as when he has had a concussion. He denies light sensitivity and neck stiffness. He has had no sick contacts. No contact with children. No recent international travel. Last was 1 year ago. They do care for their son's dog occasionally and have 2 cats at home. They had trouble with raccoons coming in their home through the cat door, but they have not come into direct contact with the raccoons and no biting. The raccoons have not defecated in the home. PAST MEDICAL HISTORY: 1. Coronary artery disease. He has had 3 stents. Denies any known valvular disease. 2. Diabetes x15 years. 3. Hyperlipidemia. 4. Chronic back pain. 5. Diverticulitis with a colon resection in the past. SOCIAL HISTORY: He lives with his . Former smoker. No alcohol or illicit drugs. 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 He is originally from [place], has been in [place] for 20 years. His primary care is Dr. Verma at [facility]. FAMILY HISTORY: Ovarian cancer in his mother. No known CVAs. REVIEW OF SYSTEMS: A complete 10-point review of systems was performed and is negative except as mentioned in the HPI. PHYSICAL EXAM: VITAL SIGNS: T-max is 38. T current is 37. Blood pressure 136 /83, heart rate 136 to 112, saturation 94% on room air. GENERAL: This is a moderately distressed male due to severity of headache who has fluent speech and is answering questions appropriately. HEENT: No conjunctival injection. His pupils are reactive bilaterally. Good dentition. Slightly dry mucous membranes. No oral ulcerations. No exudates in the posterior pharynx. Tongue is midline. NECK: Supple with full range of motion. Able to touch his chin to his chest without difficulty. CARDIOVASCULAR: Tachycardic. Murmur is not appreciated, but exam limited by tachycardia. CHEST: He has crackles, right greater than left. ABDOMEN: Mildly distended. Bowel sounds are present. He has discomfort to palpation of the right lower quadrant. EXTREMITIES: No clubbing, cyanosis, or edema. SKIN: Patient has diffuse blanching hyperemia, is not urticaria, but prominent, most prominent on his trunk and back. Neurologically, cranial nerves are intact. He is moving all 4 extremities equally, and he is alert and oriented x4. LABORATORY: White count 0.78, 71% neutrophils, 24% lymphocytes, hematocrit 42, platelets 167, creatinine 0.9. LFTs are pending. Urinalysis showed 50-182 RBCs , WBCs 10-15. Blood and urine cultures are collected and are pending. Chest x- ray is ordered and pending. ASSESSMENT/PLAN: 67-year-old male who presents with underlying diabetes and recent prostate procedure, presents with signs and symptoms of severe sepsis. Notable symptoms include headache without meningismus, nausea, vomiting, coughing, difficulty urinating, RLQ abdominal pain and mild dysuria. Urinalysis is somewhat unimpressive for UTI, primarily composed of red blood cells with a few white blood cells. Differential diagnosis for source certainly could be urinary source with recent procedure, but also would consider pneumonia or intraabdominal source. Somewhat unexpectedly, patient had fairly severe leukopenia, likely reflecting the severity of his sepsis. Due to unclear etiology of pneumonia, underlying diabetes and recent surgical procedure would cover patient broadly until additional information is known. 1. Obtain chest x-ray. 2. Would start meropenem 1 g IV q.8 and vancomycin 1.5 g IV q.12 based on normal creatinine clearance and weight. These would both provide central nervous system coverage. At this time, I will continue to monitor clinically, and I do not think that a lumbar puncture is warranted at this time, but will closely monitor. 3. Add on LFTs to existing blood work. 4. Historical feature of the raccoon, I do not think this is a pertinent exposure history, therefore no concern of rabies or other zoonotic infection. Time was 80 minutes, greater than 50% of time spent in education and counseling of the patient regarding differential diagnosis. This was also discussed with his at bedside. Care was coordinated with Dr. Reyna and Surya. Thank you for this consultation. /[id number]/MODL MTDD
[2018-07-14 08:29] VITALS: BP 142/86
--- NOTE | 2018-07-14 08:44 | PCMIDPN ---
Assessment/Plan: # sepsis- resolved # E coli bacteremia suspected urinary source as occurred s/p prostate procedure. Patient received perioperative fluoroquinolones, as expected E coli found in urine and blood is quinolone resistant. Ready to go home --ceftriaxone through 07/22/18; interagency completed; desires home health/home IV Abx --dc today after 9am dose of antibiotics --f/u in my office in dc tab Meds, Abx #5 ceftriaxone 2gm IV daily #4 Microbiology 07/09 blood cultures (2) E coli, ceftriaxone DEVYN less than 1; fluoroquinolone resistant 07/09 urine culture: E coli: Same susceptibility as blood Subjective: doing well, ready to go home; patient still has some polyuria Objective: Vital Signs Temp Pulse Resp BP Pulse Ox 36.8 C 75 16 142/86 H 93 07/14/18 08:27 07/14/18 08:27 07/14/18 08:27 07/14/18 08:27 07/14/18 08:27 Laboratory Results 07/14/18 04:30 07/14/18 04:30 07/13/18 07/14/18 07/15/18 05:59 05:59 05:59 Intake Total 3314 1400 Output Total 3150 3325 1380 Balance 164 -1925 -1380 - Physical Exam General Appearance: alert, no apparent distress Respiratory: No accessory muscle use Skin: No rash Neuro/Psych: alert, normal mood/affect, oriented x 3 - Time Spent With Patient Time Spent with Patient: greater than 25 minutes Time Spent with Patient: Greater than 25 minutes spent on this patients care, greater than 50% of time spent counseling, educating, and coordinating care regarding the above mentioned plan. ICD10 Worksheet Patient Problems: Problems Problem Status Onset Neutropenia Acute Pyelonephritis Acute Severe sepsis Acute Tachycardia Acute CAD - Coronary arteriosclerosis Active Chest pain Active Dizziness Acute Transient visual loss Acute Vertigo Acute
[2018-07-14] MEDS: IBUPROFEN 200 MG TAB PO PRN (09:50)
[2018-07-14] MEDS: TAMSULOSIN HCL 0.4 MG CAP PO SCH (09:52)
[2018-07-14] MEDS: ROSUVASTATIN CALCIUM 20 MG TAB PO SCH (09:53)
[2018-07-14] MEDS: metFORMIN HCL 500 MG TAB PO SCH (09:53)
[2018-07-14] MEDS: glipiZIDE 5 MG TAB PO SCH (09:54)
[2018-07-14] MEDS: PHENAZOPYRIDINE HCL 200 MG TAB PO SCH (09:54)
[2018-07-14] MEDS: CARVEDILOL 3.125 MG TAB PO SCH (09:55)
[2018-07-14] MEDS: CHOLECALCIFEROL VIT D3 1,000 UNITS TAB PO SCH (09:56)
[2018-07-14] MEDS: PIOGLITAZONE HCL 15 MG TAB PO SCH (09:57)
[2018-07-14] MEDS: MULTIVITAMINS 1 EACH TAB PO SCH (09:57)
[2018-07-14] MEDS: ASPIRIN EC 81 MG TAB PO SCH (09:58)
[2018-07-14] MEDS: ENOXAPARIN 40 MG/0.4 ML SYR SC SCH (10:22)
--- NOTE | 2018-07-14 11:24 | PDIAF ---
- Diagnosis Diagnosis: E coli bacteremia Code Status: Full Code - Medication Management Discharge Medications: Medications to Continue on Transfer Pioglitazone HCl [Actos 15mg (*)] 30 mg PO DAILY 12/29/12 [Last Taken 07/08/18] Calcium Carbonate [Oyster Shell Calcium 500 mg (*)] 500 mg PO DAILY 02/18/17 [ Last Taken 07/08/18] Aspirin EC [Aspirin EC 81 mg (*)] 81 mg PO DAILY 07/09/18 [Last Taken 07/08/18] Carvedilol [Coreg (*)] 3.125 mg PO BIDMEAL 07/09/18 [Last Taken 07/08/18] Cholecalciferol Vit D3 [Vitamin D3 (*)] 1,000 units PO DAILY 07/09/18 [Last Taken 07/08/18] Insulin Detemir [Levemir Flextouch] 18 unit SQ HS 07/09/18 [Last Taken 07/08/18] Insulin Detemir [Levemir] 10 unit SQ DAILY 07/09/18 [Last Taken 07/08/18] Multivitamins [Multivitamin (*)] 1 each PO DAILY 07/09/18 [Last Taken 07/08/18] Rosuvastatin Calcium [Crestor 20mg (*)] 20 mg PO DAILY 07/09/18 [Last Taken ] Tadalafil [Cialis] 5 mg PO HS 07/09/18 [Last Taken 07/08/18] glipiZIDE [Glipizide] 10 mg PO BIDMEAL 07/09/18 [Last Taken 07/08/18] metFORMIN HCL [Metformin HCl] 1,000 mg PO BIDMEAL 07/09/18 [Last Taken 07/08/18] Chcf Antibiotics: ceftriaxone 1gm IV daily Bat Person Antibiotic Stop Date: 07/22/18 Discharge Medications: Refer to the Discharge Home Medication list for PRN reason. PICC Care - Routine: Yes - Orders Services needed: Home Care, Registered Nurse Home Care Face to Face: I certify that this patient was under my care and that I had the required [id number] encounter meeting the encounter requirements on the discharge day. My findings support the fact that the patient is homebound as defined in Home Care Face to Face Continued: CMS Chapter 7 Medicare Benefits Manual 30.1.1 , The condition of the patient is such that there exists a normal inability to leave home and consequently, leaving home would require a considerable and taxing effort. Isolation Type: None - Labs/Radiology CBC w/diff Date: 07/19/18 (weekly Wednesday) CMP Date: 07/19/18 (weekly Wednesday) Call or Fax Lab and Imaging Results to: Faye Madera MD [facility] at fax [phone] - Follow Up Care Current Providers and Referrals: Nora Verma MD [Primary Care Provider] - As per Instructions Faye Madera MD [Medical Doctor] - 07/20/18 10:30 am
--- NOTE | 2018-07-14 11:26 | PDIAF ---
- Diagnosis Diagnosis: E coli bacteremia, BPH Code Status: Full Code - Medication Management Discharge Medications: Medications to Continue on Transfer Pioglitazone HCl [Actos 15mg (*)] 30 mg PO DAILY 12/29/12 [Last Taken 07/08/18] Calcium Carbonate [Oyster Shell Calcium 500 mg (*)] 500 mg PO DAILY 02/18/17 [ Last Taken 07/08/18] Aspirin EC [Aspirin EC 81 mg (*)] 81 mg PO DAILY 07/09/18 [Last Taken 07/08/18] Carvedilol [Coreg (*)] 3.125 mg PO BIDMEAL 07/09/18 [Last Taken 07/08/18] Cholecalciferol Vit D3 [Vitamin D3 (*)] 1,000 units PO DAILY 07/09/18 [Last Taken 07/08/18] Insulin Detemir [Levemir Flextouch] 18 unit SQ HS 07/09/18 [Last Taken 07/08/18] Insulin Detemir [Levemir] 10 unit SQ DAILY 07/09/18 [Last Taken 07/08/18] Multivitamins [Multivitamin (*)] 1 each PO DAILY 07/09/18 [Last Taken 07/08/18] Rosuvastatin Calcium [Crestor 20mg (*)] 20 mg PO DAILY 07/09/18 [Last Taken ] Tadalafil [Cialis] 5 mg PO HS 07/09/18 [Last Taken 07/08/18] glipiZIDE [Glipizide] 10 mg PO BIDMEAL 07/09/18 [Last Taken 07/08/18] metFORMIN HCL [Metformin HCl] 1,000 mg PO BIDMEAL 07/09/18 [Last Taken 07/08/18] Acetaminophen [Tylenol ES 500 mg (*)] 1,000 mg PO Q8HRS PRN tab 07/14/18 [Last Taken Unknown] Ibuprofen [Motrin (*)] 400 mg PO Q6HRS PRN tab 07/14/18 [Last Taken Unknown] Phenazopyridine HCl [Pyridium] 200 mg PO PC #60 tab 07/14/18 [Last Taken Unknown ] Tamsulosin HCl [Flomax 0.4 MG (*)] 0.4 mg PO DAILY #30 cap 07/14/18 [Last Taken Unknown] cefTRIAXone [Rocephin] 2 gm IV DAILY vial 07/14/18 [Last Taken Unknown] Longterm Antibiotics: ceftriaxone 1gm IV daily Pitch Flaker Antibiotic Stop Date: 07/22/18 Discharge Medications: Refer to the Discharge Home Medication list for PRN reason. PICC Care - Routine: Yes - Orders Services needed: Home Care, Registered Nurse Home Care Face to Face: I certify that this patient was under my care and that I had the required [id number] encounter meeting the encounter requirements on the discharge day. My findings support the fact that the patient is homebound as defined in Home Care Face to Face Continued: [facility] Chapter 7 Medicare Benefits Manual 30.1.1 , The condition of the patient is such that there exists a normal inability to leave home and consequently, leaving home would require a considerable and taxing effort. Isolation Type: None Oxygen: NA Diet Recommendation: ADA 2000 consistent carb Weigh Patient: daily Anderson: Not applicable Additional Instructions: Please schedule outpatient follow-up with Dr. Jorje Desai within 1 week - Labs/Radiology CBC w/diff Date: 07/19/18 (weekly Wednesday) CMP Date: 07/19/18 (weekly Wednesday) Call or Fax Lab and Imaging Results to: Faye Madera MD [facility] at fax [phone] - Follow Up Care Current Providers and Referrals: Faye Madera MD [Medical Doctor] - 07/20/18 10:30 am Nora Verma MD [Primary Care Provider] - follow up in 2 weeks
--- NOTE | 2018-07-14 11:42 | ASMTCMCOM ---
CM Note CM Note Notes: Met with patient and his , discussed discharge plan and need for daily infusions for 2 weeks. He prefers to receive them at home with HC RN. is open to teaching but may prefer to have RN do the daily infusions. [employer] to provide supplies and teaching. Cost per [employer] is $25/day for supplies, and $20/day for infusion medication. [facility] to staff daily RN for 2 weeks. Discharge home planned for today, to transport patient home. Plan: Home with HC RN, [employer] to provide infusion supplies. Date Signed: 07/14/2018 11:18 AM Electronically Signed By:Megha Casas LCSW
[2018-07-14] MEDS: INSULIN DETEMIR 10 UNIT SQ SCH (13:29)
--- NOTE | 2018-07-14 16:10 | ASDISCHSUM ---
Discharge Information Plan Status:Home with Home Health Medically Cleared to Leave: Discharge Date:07/14/2018 02:00 PM CM D/C Disposition:Home Health Service ADT D/C Disposition:Home Health Service Projected Discharge Date:07/14/2018 11:00 AM Transportation at D/C:Family Discharge Delay Reason: Follow-Up Date:07/14/2018 11:00 AM Discharge Slot: Final Diagnosis:Sepsis, neutropenia, s/p prostate surgery Placement Information Referral Type:Home Infusion Referral ID:[id number] Provider Name:[facility] Address 1:[address] Address 2: City:[place] Selection Factors: State:[place] Referral Type:*Home Health Care Services Referral ID:[id number] Provider Name:[facility] Address 1:[address] Address 2: City:[place] Selection Factors: State:[place] Patient Contact Information Contact Name:SURESH Relationship: Address:[address] City:[facility] Phone: State/Zip Code:[place] [address] Email: Financial Information Financial Class:Medicare Primary Plan Desc:MEDICARE INPATIENT Primary Plan Number:[id number] Secondary Plan Desc: Secondary Plan Number: Assessment Information [facility] CM Progress Note CM Note CM Note Notes: Pt presented to the Emergency Department with fever, tachycardia, rigors s/p recent prostate surgery and lozada catheter removal. Pt to be admitted for neutropenia and sepsis. Pt lives with his , independently. Discharge needs remain unclear at this time. CM will continue to follow. Date Signed: 07/09/2018 10:39 AM Electronically Signed By:Ernestina Galloway RN [facility] CM Progress Note CM Note CM Note Notes: Pt is on IV meropenem for e coli sepsis pe chart notes. Pt to get a CT scan today. DC plan is TBD, Date Signed: 07/11/2018 11:08 AM Electronically Signed By:Megha Casas LCSW [facility] CM Progress Note CM Note CM Note Notes: Pt had a PICC line inserted. He is hoping to return home tomorrow or the next day. He would prefer to have his infusion out-pt. CM to follow. D/C Plan: Independent with out-patient infusion services. Date Signed: 07/12/2018 01:35 PM Electronically Signed By:Jocelynn Wilhelm [facility] CM Progress Note CM Note CM Note Notes: Met with patient and his , discussed discharge plan and need for daily infusions for 2 weeks. He prefers to receive them at home with HC RN. is open to teaching but may prefer to have RN do the daily infusions. [employer] to provide supplies and teaching. Cost per [employer] is $25/day for supplies, and $20/day for infusion medication. [facility] to staff daily RN for 2 weeks. Discharge home planned for today, to transport patient home. Plan: Home with [facility] to provide infusion supplies. Date Signed: 07/14/2018 11:18 AM Electronically Signed By:Megha Casas LCSW Intervention Information
--- NOTE | 2018-07-14 18:36 | PDDCSUM ---
Discharge Summary Discharge Summary: Discharge diagnoses: 1. Sepsis POA 2. CAUTI POA 3. E. coli bacteremia POA 4. Acute metabolic acidosis 5. Chronic BPH Procedures during admission: PICC line inserted Consults during admission: Infectious disease Subjective: feeling well, continues to have urinary frequency and dribbling, no dysuria Objective: SBP 140-150, HR 80, Afeb overnight, net neg 1.9L over 24hrs, abd soft w/ very minimal R flank tenderness, no L flank tenderness, no LE edema Labs: WBC 6,300, Hgb 11.6, Cr 0.7, FBG 111, K 4 Hospital Course: Mr. Hickey presented after laser prostate surgery and outpatient lozada catheter removal, with subsequent urinary frequency/hesitency, found to have an E. coli CAUTI/bacteremia resulting in sepsis w/ metabolic/lactic acidosis. He was seen by ID, started on IV Ceftriaxone and IVF, and UCx results demonstrated his organism to be fluoroquinalone resistant, which is the class of Abx he received mesha-procedurally. After starting appropriate Abx, his urinary symptoms continued, and pyridium was initiated given the potential for concomitant bladder spasm. He was also started on flomax given underlying, known BPH. He is discharging w/ hand-urinal, and will f/u w/ both his outpt urologist (Dr. Jorje Desai) and ID (Dr. Madera). Discharge medications: please see official discharge med rec sheet in chart; of note, flomax, pyridium, and IV CTX (through 07/22) Instructions: please f/u ID as scheduled, and call outpt Urology office for f/u appt. > 30 minutes spent on direct patient care, as well as coordinating the above.
== END 2018-07-14 14:00 | disposition home health service (06) | DRG 698 ==
LOC: F1N 12:54
PROVIDERS: ADMIT Internal Medicine; ATTEND Internal Medicine
PROC: 02HV33Z Insertion of Infusion Device into Superior Vena Cava, Percutaneous Approach (ICD-10-PCS; principal; 2018-07-12)
DX: T83.511A Infection and inflammatory reaction due to indwelling urethral catheter, initial encounter (principal); A41.51 Sepsis due to Escherichia coli [E. coli]; N39.0 Urinary tract infection, site not specified; E87.2 Acidosis; I25.10 Atherosclerotic heart disease of native coronary artery without angina pectoris; E11.9 Type 2 diabetes mellitus without complications; E78.5 Hyperlipidemia, unspecified; N40.0 Benign prostatic hyperplasia without lower urinary tract symptoms; I25.2 Old myocardial infarction; Z95.5 Presence of coronary angioplasty implant and graft; Z87.891 Personal history of nicotine dependence
CPT/HCPCS: 84484-PO; 96365; 97161-GP; 97165-GO; C1751; G8978-GP-CJ; G8979-GP-CI; G8987-GO-CI; G8988-GO-CI; G8989-GO-CI; J0696; J1170; J1650; J1815; J2185; J2405; J2997; J3370